=== PATIENT | male | born 1955 | race Hispanic/Latino ===

== ENCOUNTER 2025-01-07 23:55 | Emergency (ER) | payer OTHER, MEDICARE ==
[~2025-01-07] VITALS: Ht 167.6 cm; Wt 90.7 kg
[~2025-01-07 23:55] MED LIST: AEC81 PO; ALLO100T PO; ATOR20TA65 PO; CHOL2000 PO; FOLI1TAB85 PO; LOSA100T59 PO; OXYC-38 PO; TAMS-55 PO
[2025-01-08 00:35] LABS: CREATININE 1.1 mg/dL (0.5-1.3); GLOMERULAR FILTR. RATE CALC 72.0 mL/min (>90); GLUCOSE,RANDOM 145.0 mg/dL (70-105); SODIUM SERUM 140.0 mmol/L (136-145); UREA NITROGEN, BLOOD 20.0 mg/dL (7-18)
[2025-01-08 00:42] LABS: IMMATURE GRANULOCYTE ABSOLUTE 0.03 K/uL (0-1); NUCLEATED RED BLOOD CELLS 0.0 % (0.0-0.19); PLATELET COUNT (AUTO) 301 K/uL (130-400); RED BLOOD CELL COUNT(AUTO) 4.44 MIL/uL (4.50-6.20); RED CELL DISTRIBUTION WIDTH 13.6 % (11.0-15.5); WHITE BLOOD COUNT (AUTO) 9.7 K/uL (4.8-10.8)
[2025-01-08 00:43] LABS: INR 1.02 (0.85-1.15)
--- NOTE | 2025-01-08 01:16 | ERN ---
General Chief Complaint: Post-Op Problem Stated Complaint: WOUND CHECK Time Seen by MD: 00:15 History of Present Illness Initial Comments Mr Holt is a 69 year old male who comes in today with left knee pain. Patient reports he has been having increased bloody drainage of his left knee replacement by Dr. Santiago. Allergies: Coded Allergies: No Known Drug Allergies (Verified Allergy, Unknown, 07/15/16) Home Meds Active Scripts Oxycodone HCl/Acetaminophen (Percocet 5-325 mg Tablet) 5 Mg-325 Mg Tablet, 1-2 TAB PO Q8H PRN for Acute post-op pain (G89.18) for 7 Days, #42 TAB 0 Refills Prov:VINH SANTIAGO MD 01/04/25 Aspirin (ASPIRIN 81 MG ECTAB) 81 Mg Ectab, 81 MG PO BID for dvt prophylaxis for 30 Days, #60 TAB.EC Prov:VINH SANTIAGO MD 01/04/25 Reported Medications Cholecalciferol (Vitamin D3) (Vitamin D3) 50 Mcg (2000 Unit) Capsule, 50 MCG PO HS, CAP 01/01/25 Losartan Potassium (Losartan Potassium) 100 Mg Tablet, 100 MG PO HS, TAB 01/01/25 Atorvastatin Calcium (Atorvastatin Calcium) 20 Mg Tablet, 20 MG PO HS, TAB 01/01/25 Tamsulosin HCl (Flomax) 0.4 Mg Cap.er.24h, 0.4 MG PO HS, CAPSULE. 01/01/25 Vit B Cmplx 3/FA/Vit C/Biotin (Yolanda-Herminio Rx Tablet) 1 Each Tablet, 1 EACH PO HS, TAB 07/15/16 Allopurinol (Allopurinol) 100 Mg Tablet, 200 MG PO HS, TAB 07/15/16 Discontinued Reported Medications Tramadol Hcl (Tramadol HCl) 50 Mg Tablet, 50 MG PO TID PRN for PAIN, TAB 07/15/16 Sildenafil Citrate (Viagra) 100 Mg Tablet, 100 MG PO DAILY PRN for ERECTILE DYSFUCTION, TAB 07/15/16 Cholecalciferol (Vitamin D3) (Vitamin D3) 5,000 Unit Tablet, 5000 UNIT PO HS, TAB 07/15/16 Past Medical History Past Medical History: High Cholesterol, Hypertension Past Surgical History: Other Surgical History Other: LEFT KNEE SX, RIGHT NEPHRECTOMY Physical Exam Physical Exam Dictation General: awake, alert, NAD Head/Face: Normocephalic, atraumatic Eyes: PERRL, EOMI, vision at baseline ENT: oral cavity clear, TMs clear, no signs of infection Neck: Trachea midline, supple, no nuchal rigidity Cardiovascular: RRR, normal S1/S2, No MRGs, no JVD Respiratory: CTAB, no respiratory distress, No rales or wheezes Abdomen: Soft, non-tender, non-distended, normal bowel sounds, no guarding or rebound. Skin: Warm, dry, normal turgor, no rash MS/Extremity: Enlarged left lower extremity with drainage device Neuro: COAx4, GCS 15, strength 5/5, CN 2-12 intact, normal cerebellar exam, normal gait, Psych: Normal behavior, mood, and affect normal Results Laboratory and Microbiology Lab and Micro Result Laboratory Tests Test 01/08/25 00:08 White Blood Count 9.7 K/uL (4.8-10.8) Red Blood Count 4.44 MIL/uL (4.50-6.20) L Hemoglobin 13.3 g/dL (14.0-18.0) L Hematocrit 40.9 % (42-54) L Mean Corpuscular Volume 92.1 fL (79-99) Mean Corpuscular Hemoglobin 30.0 pg (27.0-33.0) Mean Corpuscular Hemoglobin Concent 32.5 g/dL (32.0-36.0) Red Cell Distribution Width 13.6 % (11.0-15.5) Platelet Count 301 K/uL (130-400) Mean Platelet Volume 9.2 fL (7.5-10.5) Immature Granulocyte % (Auto) 0.3 % (0-1) Neutrophils (%) (Auto) 65.5 % (40.0-77.0) Lymphocytes (%) (Auto) 21.4 % (21.0-51.0) Monocytes (%) (Auto) 9.0 % (3.0-13.0) Eosinophils (%) (Auto) 3.3 % (0.0-8.0) Basophils (%) (Auto) 0.5 % (0.0-5.0) Neutrophils # (Auto) 6.4 K/uL (1.8-7.7) Lymphocytes # (Auto) 2.1 K/uL (1.0-4.8) Monocytes # (Auto) 0.9 K/uL (0.1-1.0) Eosinophils # (Auto) 0.32 K/uL (0.00-0.70) Basophils # (Auto) 0.05 K/uL (0.00-0.20) Absolute Immature Granulocyte (auto 0.03 K/uL (0-1) Nucleated Red Blood Cells 0.0 % (0.0-0.19) Prothrombin Time 10.8 SEC (9.6-11.6) Prothromb Time International Ratio 1.02 (0.85-1.15) Activated Partial Thromboplast Time 28.7 SEC (26.3-35.5) Sodium Level 140 mmol/L (136-145) Potassium Level 3.6 mmol/L (3.5-5.1) Chloride Level 103 mmol/L (101-111) Carbon Dioxide Level 26 mmol/L (21-32) Blood Urea Nitrogen 20 mg/dL (7-18) H Creatinine 1.1 mg/dL (0.5-1.3) Glomerular Filtration Rate Calc 72 mL/min (>90) Random Glucose 145 mg/dL (70-105) H Total Calcium 9.5 mg/dL (8.5-10.1) MDM Patient was seen by Dr. Santiago who did help repair the patient's wound care device. Patient also appears to be retaining urine. Patient will be given Martinez catheter to go home with and follow up with the primary care physician MDM: Differential diagnosis: Wound issue Rationale: Tests considered and ordered secondary to shared decision making include: Previous outside records reviewed: Old ER visits. Risk of complication and/or morbidity or mortality of patient management: None Medications-Per medication reconciliation Need for hospitalization: Patient does not meet criteria for hospitalization. Need for emergency major/minor surgery: No There are no social concerns with this patient. Prescription drug management Prescriptions will include symptomatic care Patient's prior external medical records from other ER visits were reviewed by me as indicated. Prior testing and results from previous visits were reviewed. Prior tests were taken into account with medical decision making and resource utilization, independent historian/historians were used to obtain complete medical history. I independently interpreted the test that were performed, results were reviewed by me and considered findings on radiology if ordered. Medical management and examination interpretation discussions were had by me with other qualified healthcare professionals as indicated for the patient's care. ED Course Orders Procedure Category Date Status Time Cbc With Differential LAB 01/07/25 Complete 23:59 Basic Metabolic Panel LAB 01/07/25 Complete 23:59 Pt And Ptt LAB 01/07/25 Complete 23:59 Us Venous Doppler US 01/08/25 Taken Bilateral 00:22 Dermabond (Dermabond) PHA 01/08/25 Complete 02:04 Nurse Driven Martinez ARCHIE 01/08/25 In Process Removal Pro 02:06 Current Medications Medications (Trade) Dose Ordered Sig/Lory Route PRN Reason Start Time Stop Time Status Last Admin Dose Admin Octyl Cyanoacrylate (Dermabond) 1 each STK-MED ONCE TP 01/08/25 02:04 01/08/25 02:04 DC Vital Signs Date Time Temp Pulse Resp B/P (MAP) Pulse Ox O2 Delivery O2 Flow Rate FiO2 01/08/25 01:33 98.4 88 14 162/85 96 Room Air* 0 21 01/07/25 23:58 98.4 104 16 162/85 98 Room Air* 0 21 01/07/25 23:58 98.4 100 18 160/85 98 Room Air 0 DX & DISP Disposition: Discharge Departure Impression: Primary Impression: Postoperative complication Condition: Stable Additional Instructions: Please follow up with your primary care physician to discuss urinary retention. Please follow up with Orthopedics has needed for continuance care of your drainage device Referrals: MAHESH LARSON MD (PCP) VINH CROCKER MD Jan 08, 2025 01:16
--- NOTE | 2025-01-08 01:51 | NUR ---
DR RICHARDSON AT BEDSIDE.
--- NOTE | 2025-01-08 02:02 | NUR ---
BLADDER SCANNER SHOWED [phone].
--- NOTE | 2025-01-08 02:04 | NUR ---
PER DR. RICHARDSON, INSERT INDWELLING CENTENO CATHETER AND ATTACH TO LEG BAG FOR D/C
[2025-01-08] MEDS: OCTYL 2-CYANOACRYLATE 1 EACH TP ONE (02:09)
--- NOTE | 2025-01-08 02:20 | NUR ---
DR. RICHARDSON ASSESSED SURGICAL SITE, REDRESSED LATERAL INCISION SITE WITH DERMABOND, 4X4 DRESSING, AND DEEP WRAP. PT WILL FOLLOW UP WITH DR. RICHARDSON OUTPATIENT ON TUESDAY.
--- NOTE | 2025-01-08 02:47 | ERN ---
CONSULTATION NOTE DATE OF ER CONSULTATION: DATE: 01/08/25 REASON FOR CONSULTATION: Post-operative bleeding HISTORY OF PRESENT ILLNESS: The face using a 69-year-old male that underwent a revision knee arthroplasty on January 03, 2025. The patient was also treated for a chronic cystic lesion in the lateral aspect of the knee. The patient presented to the emergency room by ambulance for complains of swelling to the leg as well as bleeding. He was evaluated by the emergency room physician and it was found that a the vein thrombosis was ruled out by Doppler study. Regardless the patient had a dressing in the lateral aspect of the knee saturated with blood reason why I was called. The patient denies any fever or chills. The patient denies any pain. He states that the bleeding just started yesterday and later by little the dressing which is small start getting saturated. He states that he is only taking Tylenol. He was assessed by physical therapy for the 1st time yesterday and has her next appointment on Tuesday. PAST MEDICAL HISTORY: Hypercholesterolemia, hypertension, BPH PAST SURGICAL HISTORY: Multiple knee surgeries more than 20 years ago. Left total knee arthroplasty 20 years ago. History of UroLift procedure for prostate hypertrophy. Nephrectomy ALLERGIES: Coded Allergies: No Known Drug Allergies (Verified Allergy, Unknown, 07/15/16) SOCIAL HISTORY: Denies use of tobacco or alcohol FAMILY HISTORY No relevant HOME MEDS: Active Scripts Oxycodone HCl/Acetaminophen (Percocet 5-325 mg Tablet) 5 Mg-325 Mg Tablet, 1-2 TAB PO Q8H PRN for Acute post-op pain (G89.18) for 7 Days, #42 TAB 0 Refills Prov:VINH RICHARDSON MD 01/04/25 Aspirin (ASPIRIN 81 MG ECTAB) 81 Mg Ectab, 81 MG PO BID for dvt prophylaxis for 30 Days, #60 TAB.EC Prov:VINH RICHARDSON MD 01/04/25 Reported Medications Cholecalciferol (Vitamin D3) (Vitamin D3) 50 Mcg (2000 Unit) Capsule, 50 MCG PO HS, CAP 01/01/25 Losartan Potassium (Losartan Potassium) 100 Mg Tablet, 100 MG PO HS, TAB 01/01/25 Atorvastatin Calcium (Atorvastatin Calcium) 20 Mg Tablet, 20 MG PO HS, TAB 01/01/25 Tamsulosin HCl (Flomax) 0.4 Mg Cap.er.24h, 0.4 MG PO HS, CAPSULE. 01/01/25 Vit B Cmplx 3/FA/Vit C/Biotin (Yolanda-Herminio Rx Tablet) 1 Each Tablet, 1 EACH PO HS, TAB 07/15/16 Allopurinol (Allopurinol) 100 Mg Tablet, 200 MG PO HS, TAB 07/15/16 Discontinued Reported Medications Tramadol Hcl (Tramadol HCl) 50 Mg Tablet, 50 MG PO TID PRN for PAIN, TAB 07/15/16 Sildenafil Citrate (Viagra) 100 Mg Tablet, 100 MG PO DAILY PRN for ERECTILE DYSFUCTION, TAB 07/15/16 Cholecalciferol (Vitamin D3) (Vitamin D3) 5,000 Unit Tablet, 5000 UNIT PO HS, TAB 07/15/16 VITAL SIGNS Vital Signs Date Time Temp Pulse Resp B/P (MAP) Pulse Ox O2 Delivery O2 Flow Rate FiO2 01/08/25 01:33 98.4 88 14 162/85 96 Room Air* 0 21 01/07/25 23:58 98.4 104 16 162/85 98 Room Air* 0 21 01/07/25 23:58 98.4 100 18 160/85 98 Room Air 0 REVIEW OF SYSTEMS The patient reports symptoms of urinary retention consisting of frequent urination standing every 20 minutes and going to the bathroom with just a few drops of urine coming out. He has a history of prostate issues and takes medication for retention. The patient had a UroLift several years ago which he reports helped initially but is no longer effective. He urinates normally every 3-4 hours. PHYSICAL EXAM The patient is seen at the bedside. He is alert, oriented x3 and in no distress. Her respiratory rate and rhythm is normal and he has no labored respirations. The suprapubic exam reveals the patient has tenderness of the suprapubic area as well as what seems to be a distended bladder. A bladder scan demonstrated the presence of 740 mL of urine. Musculoskeletal assessment of the left lower extremity shows very diffuse edema especially in the calf which is soft and this negative Homans sign. Temperature is adequate. The dressing covering the midline incision which is a Darwin dressing is dry and functioning properly. The dressing which is a small op-site covering the incision which is covered with a small 4x4s is saturated. The dressing is removed in the lateral side and the incision seems to be healing well but this one small spot that oozes slowly but continuously. The patient is able to flex his knee to about 90 and he has weakness for extension because of pain. Otherwise the distal neurovascular exam is normal.. LABORATORY RESULTS Laboratory Tests 01/08/25 00:08: White Blood Count 9.7, Red Blood Count 4.44, Hemoglobin 13.3, Hematocrit 40.9, Mean Corpuscular Volume 92.1, Mean Corpuscular Hemoglobin 30.0, Mean Corpuscular Hemoglobin Concent 32.5, Red Cell Distribution Width 13.6, Platelet Count 301, Mean Platelet Volume 9.2, Immature Granulocyte % (Auto) 0.3, Neutrophils (%) (Auto) 65.5, Lymphocytes (%) (Auto) 21.4, Monocytes (%) (Auto) 9.0, Eosinophils (%) (Auto) 3.3, Basophils (%) (Auto) 0.5, Neutrophils # (Auto) 6.4, Lymphocytes # (Auto) 2.1, Monocytes # (Auto) 0.9, Eosinophils # (Auto) 0.32, Basophils # (Auto) 0.05, Absolute Immature Granulocyte (auto 0.03, Nucleated Red Blood Cells 0.0, Prothrombin Time 10.8, Prothromb Time International Ratio 1.02, Activated Partial Thromboplast Time 28.7, Sodium Level 140, Potassium Level 3.6, Chloride Level 103, Carbon Dioxide Level 26, Blood Urea Nitrogen 20, Creatinine 1.1, Glomerular Filtration Rate Calc 72, Random Glucose 145, Total Calcium 9.5 RADIOLOGY Ultrasound study done earlier today reveals patent veins of the lower extremity with no signs of DVT. PROBLEM LIST Status post left total knee arthroplasty revision and excision of synovial cyst at the lateral aspect of the knee. Very light postoperative bleeding from the lateral incision Urinary retention. PLAN In reference to the surgical wound the patient has been treated with a dressing change and a compressive dressing from the foot up to the knee. The patient is to remain steady just ambulating and keeping the leg elevated while is seated or lying down. History of do ankle pumps also to help decrease the bleeding. He can reach position of the Fidel bandage if necessary. He is going to come to my office this Tuesday for wound check and removal of the Darwin dressing. History continue with the ice packs of the knee. I am going to see him to call the physical therapy from the home health and hold the therapy until next week. In reference of the urinary retention, the team from the emergency department placed a Martinez catheter with a bag. The [facility] to [facility]rology for catheter removal in 7-10 days as well as urologic evaluation. The patient isn't having much pain and is taking only Tylenol for it and I will recommend to avoid as much as possible narcotics. He is to contact the office if any problem occurs between here and Tuesday. VINH RICHARDSON MD Jan 08, 2025 02:47
[2025-01-08 03:23] VITALS: BP 136/56; PULSE 75; RESP 21; TEMP 98.5; O2SAT 98
--- NOTE | 2025-01-08 03:28 | HMCIMG ---
EXAM Ultrasound for Deep Venous Thrombosis DVT, Bilateral Lower Extremities CLINICAL HISTORY Left leg swelling. Rule out DVT left side. TECHNIQUE Real-time ultrasound with compression, color Doppler, and spectral waveform analysis of the bilateral lower extremity veins. COMPARISON None available. FINDINGS Deep Veins Common femoral, superficial femoral, and popliteal veins are patent, compressible, and show normal color Doppler flow. Calf veins are also patent. Soft Tissues Posterior to the left knee area: Anechoic fluid-filled area with no vascularity, measuring 5.2 x 2.6 x 2.8 cm. Differential includes Vang's cyst vs seroma. Another hypoechoic area in the same region measures 2.8 x 1.1 x 1.6 cm, possibly a hematoma. Left calf area: Anechoic, nonvascular structure measuring 4.9 x 1.3 x 3.6 cm, possibly a seroma. IMPRESSION No evidence of DVT in either lower extremity. Incidental left leg soft tissue findings as described above. /[place]
== END 2025-01-08 03:41 | disposition home or self-care (01) ==
LOC: EDH 23:55
DX: L76.82 Other postprocedural complications of skin and subcutaneous tissue (principal); E78.00 Pure hypercholesterolemia, unspecified; I10 Essential (primary) hypertension; M79.662 Pain in left lower leg; R33.8 Other retention of urine; Z79.82 Long term (current) use of aspirin; Z90.5 Acquired absence of kidney; Z96.652 Presence of left artificial knee joint
CPT/HCPCS: 36415; 51702; 80048; 85025; 85610; 85730; 93970; 99284

== ENCOUNTER 2025-01-16 18:16 | Emergency (ER) | payer OTHER, MEDICARE ==
[~2025-01-16] VITALS: Ht 167.6 cm; Wt 120.2 kg
[2025-01-16 18:17] VITALS: BP 168/88; PULSE 95; RESP 18; TEMP 98.6
--- NOTE | 2025-01-16 18:25 | ERN ---
ED Note History of Present Illness Stated Complaint: URINE RETENTION Chief Complaint: Urinary Retention Time Seen by MD: 18:17 Dictation: PATIENT IS A 69-YEAR-OLD MALE COMING IN TODAY WITH A AN ACUTE URINARY RETENTION, ONSET 10:00 THIS MORNING. HE STATES HE HAD HAD A CENTENO CATHETER REMOVED BY HIS UROLOGIST AT THE [facility] AT 10:00, WAS ADVISED IF HE HAD NO URINE IN THE NEXT 6-8 HOURS TO COME IN TO THE EMERGENCY ROOM. HE STATES HE HAS BEEN UNABLE TO VOID SINCE THE CENTENO CATHETER WAS REMOVED, PATIENT IS 2-3 FINGERBREADTHS DISTENDED ABOVE SYMPHYSIS PUBIS. Allergies: Coded Allergies: No Known Drug Allergies (Verified Allergy, Unknown, 07/15/16) Home Meds Active Scripts Oxycodone HCl/Acetaminophen (Percocet 5-325 mg Tablet) 5 Mg-325 Mg Tablet, 1-2 TAB PO Q8H PRN for Acute post-op pain (G89.18) for 7 Days, #42 TAB 0 Refills Prov:VINH RICHARDSON MD 01/04/25 Aspirin (ASPIRIN 81 MG ECTAB) 81 Mg Ectab, 81 MG PO BID for dvt prophylaxis for 30 Days, #60 TAB.EC Prov:VINH RICHARDSON MD 01/04/25 Reported Medications Cholecalciferol (Vitamin D3) (Vitamin D3) 50 Mcg (2000 Unit) Capsule, 50 MCG PO HS, CAP 01/01/25 Losartan Potassium (Losartan Potassium) 100 Mg Tablet, 100 MG PO HS, TAB 01/01/25 Atorvastatin Calcium (Atorvastatin Calcium) 20 Mg Tablet, 20 MG PO HS, TAB 01/01/25 Tamsulosin HCl (Flomax) 0.4 Mg Cap.er.24h, 0.4 MG PO HS, CAPSULE. 01/01/25 Vit B Cmplx 3/FA/Vit C/Biotin (Yolanda-Herminio Rx Tablet) 1 Each Tablet, 1 EACH PO HS, TAB 07/15/16 Allopurinol (Allopurinol) 100 Mg Tablet, 200 MG PO HS, TAB 07/15/16 Past Medical History Past Medical History: High Cholesterol, Hypertension, Prostatitis Surgical History: Other Surgical History Other: LEFT KNEE, RIGHT KIDNEY REMOVAL RN Note Reviewed/Agreed w/PFSH: Yes Review of System Dictation CONSTITUTIONAL: NEGATIVE EXCEPT FOR HPI HEAD/FACE: NEGATIVE EXCEPT FOR HPI EENT: NEGATIVE EXCEPT FOR HPI RESPIRATORY: NEGATIVE EXCEPT FOR HPI GASTROINTESTINAL/ABDOMINAL: NEGATIVE EXCEPT FOR HPI GENITOURINARY: NEGATIVE EXCEPT FOR HPI ACUTE URINARY RETENTION ONSET 10:00 STATUS POST CENTENO CATHETER REMOVAL MUSCULOSKELETAL: NEGATIVE EXCEPT FOR HPI INTEGUMENTARY: NEGATIVE EXCEPT FOR HPI NEUROLOGICAL/PSYCH: NEGATIVE EXCEPT FOR HPI HEMATOLOGIC/LYMPHATIC: NEGATIVE EXCEPT FOR HPI ALL SYSTEMS NEGATIVE, EXCEPT NOTED ABOVE. 13 POINT REVIEW OF SYSTEMS ASSESSED AND ALL NEGATIVE EXCEPT FOR ABOVE. Initial Vital Sign VS Vital Signs Date Time Temp Pulse Resp B/P (MAP) Pulse Ox O2 Delivery O2 Flow Rate FiO2 01/16/25 18:17 98.6 95 18 168/88 98 Physical Exam Dictation VITAL SIGNS REVIEWED GENERAL APPEARANCE: ALERT, ORIENTED X 3, MODERATE ACUTE DISTRESS, WELL DEVELOPED, NOURISHED. HEAD AND FACE: NON-TRAUMATIC. EYES: PERRL, PINK CONJUNCTIVAS, EYELID NO TRAUMA, ANTERIOR CHAMBER WITH ARCUS SENILIS. EARS: PINNAS INTACT AND NO SIGNS OF TRAUMA OR ERYTHEMA EAR CANALS CLEAR AND NO DISCHARGE TM NO ERYTHEMA NOSE: NO DISCHARGE, NO BLEEDING. OROPHARYNX: MOUTH NORMAL, TONGUE PINK, PHARYNX CLEAR,NO ERYTHEMA, TONSILS NO EXUDATES, NO ABSCESSES NOTED, MUCOUS MEMBRANE MOIST NECK: SUPPLE, NON-TENDER, NO THYROMEGALY, NO MASSES, NO JVD, NO BRUITS BREAST:DEFERRED CHEST:NO TENDERNESS, NO CREPITUS, NO PARADOXICAL MOVEMENT, NO RETRACTIONS LUNGS:CLEAR, WELL-VENTILATED, SYMMETRIC, NO RALES, NO WHEEZING, NO RHONCHI, NO STRIDOR, GOOD BREATH SOUNDS BILATERALLY HEART: REGULAR RATE, REGULAR RHYTHM, NO MURMUR, NO GALLOPS VASCULAR: NO PERIPHERAL EDEMA, ABDOMEN: SOFT, POSITIVE BOWEL SOUNDS, NONDISTENDED, NO GUARDING, NONTENDER, NO REBOUND, NO MASSES NO HEPATOMEGALY, NO SPLENOMEGALY, NO RAMÍREZ'S SIGN, NO HERNIAS. RECTAL: DEFERRED GENITAL: DEFERRED BLADDER DISTENDED THREE FINGERBREADTHS ABOVE SYMPHYSIS PUBIS NEUROLOGICAL: NORMAL SPEECH, MOTOR FUNCTION INTACT, SENSORY FUNCTION INTACT MUSCULOSKELETAL: NECK NONTENDER, FULL RANGE OF MOTION, BACK NONTENDER, FULL RANGE OF MOTION, EXTREMITIES: NONTENDER, FULL RANGE OF MOTION SKIN: COLOR PINK, DRY, NO TURGOR, NO RASH, NO LACERATIONS, NO ABRASIONS, NO CONTUSIONS. LYMPHATIC: DEFERRED Results (Laboratory/Radiology) Labs Reviewed?: Yes ED Course ED Course Vital Signs Date Time Temp Pulse Resp B/P (MAP) Pulse Ox O2 Delivery O2 Flow Rate FiO2 01/16/25 18:17 98.6 95 18 168/88 98 1835/PATIENT NO LONGER DISTENDED AND CENTENO CATHETER IS DRAINING DISCHARGED HOME TO CONTINUE FLOMAX 0.8 MG PER HIS UROLOGIST Medical Decision Making MDM MEDICAL DECISION-MAKING BASED ON PHYSICAL ASSESSMENT OF BLADDER AND CENTENO CATHETER INSERTION. APPROXIMATE 450 CC OUT AFTER 16 PUERTO RICAN CENTENO CATHETER PLACED BLADDER NO LONGER PALPABLE PATIENT STATES NO PAIN AT THIS TIME. Procedure Procedure Dictation: 1834/PROCEDURE EXPLAINED TO PATIENT HE AGREED TO PROCEED CARDIAC TECHNOLOGIST PLACED 16 PUERTO RICAN CENTENO CATHETER ASEPTICALLY. NO DIFFICULTIES ENCOUNTERED. BALLOON WAS INFLATED WITH STERILE WATER IMMEDIATELY RETURNED 450 CC CLEAR YASMINE URINE. BLADDER NO LONGER PALPABLE DX & DISP Disposition: Discharge Departure Impression: Primary Impression: Acute urinary retention Condition: Stable Additional Instructions: FOLLOW-UP WITH PRIMARY CARE PROVIDER IN 1 TO 2 DAYS. TAKE MEDICATIONS DIRECTED HERE IN THE EMERGENCY ROOM. OKAY TO CONTINUE HOME MEDICATIONS UNLESS OTHERWISE DISCUSSED DURING YOUR VISIT IN THE EMERGENCY ROOM TODAY. RETURN TO YOUR NEAREST EMERGENCY ROOM IF SYMPTOMS WORSEN OR IF THERE IS NO IMPROVEMENT. CALL 911 IF YOU NEED IMMEDIATE ASSISTANCE. TAKE TYLENOL OR MOTRIN [id number] NEEDED AND IF NO CONTRAINDICATIONS ARE PRESENT. INCREASE ORAL HYDRATION. A WOUND CULTURE OR URINE CULTURE WAS ORDERED HERE IN THE EMERGENCY ROOM DEPARTMENT PLEASE FOLLOW-UP WITH PRIMARY CARE PROVIDER AND ADVISE THEM TO GET REPEAT PORTS FROM OUR FACILITY. IF YOU HAD ANY DEEP WRAP/SPLINTS THAT WERE APPLIED HERE, PLEASE DO NOT REMOVE THEM UNTIL YOU SEE YOUR PRIMARY CARE OR SPECIALTY. CONTINUE THE ANTIBIOTICS AND FLOMAX FROM YOUR UROLOGIST VISIT TODAY. FOLLOW UP WITH HIM AT THE [facility] NEXT 2-3 DAYS NEEDED. Referrals: MAHESH LARSON MD (PCP) Time of Disposition: 18:37 I have reviewed the case, and I agree with, Diagnosis and Plan SUSHILA HUGGINS [employer]UFACTURING CONTROLS ENGINEER Jan 16, 2025 18:25
--- NOTE | 2025-01-16 18:42 | NUR ---
CENTENO INSERTED, PT TOLERATED WELL
== END 2025-01-16 18:45 | disposition home or self-care (01) ==
LOC: EDH 18:16
DX: R33.9 Retention of urine, unspecified (principal); E78.00 Pure hypercholesterolemia, unspecified; I10 Essential (primary) hypertension; Z79.82 Long term (current) use of aspirin
CPT/HCPCS: 51702; 99284

== ENCOUNTER 2025-01-29 15:01 | Emergency (ER) | payer MEDICARE, OTHER ==
[~2025-01-29] VITALS: Ht 167.6 cm; Wt 90.7 kg
--- NOTE | 2025-01-29 15:10 | ERN ---
General Chief Complaint: Urinary Retention Stated Complaint: URINARY RETENTION Time Seen by MD: 15:02 Source: patient History of Present Illness Initial Comments Patient is a 69-year-old male coming in complaining of urine retention. Patient states that he has been battling with this on and off for several months. He is pending a evaluation by urologist but states that he had Martinez removed recently in his having urine retention again. Allergies: Coded Allergies: No Known Drug Allergies (Verified Allergy, Unknown, 07/15/16) Home Meds Active Scripts Oxycodone HCl/Acetaminophen (Percocet 5-325 mg Tablet) 5 Mg-325 Mg Tablet, 1-2 TAB PO Q8H PRN for Acute post-op pain (G89.18) for 7 Days, #42 TAB 0 Refills Prov:VINH RICHARDSON MD 01/04/25 Aspirin (ASPIRIN 81 MG ECTAB) 81 Mg Ectab, 81 MG PO BID for dvt prophylaxis for 30 Days, #60 TAB.EC Prov:VINH RICHARDSON MD 01/04/25 Reported Medications Cholecalciferol (Vitamin D3) (Vitamin D3) 50 Mcg (2000 Unit) Capsule, 50 MCG PO HS, CAP 01/01/25 Losartan Potassium (Losartan Potassium) 100 Mg Tablet, 100 MG PO HS, TAB 01/01/25 Atorvastatin Calcium (Atorvastatin Calcium) 20 Mg Tablet, 20 MG PO HS, TAB 01/01/25 Tamsulosin HCl (Flomax) 0.4 Mg Cap.er.24h, 0.4 MG PO HS, CAPSULE. 01/01/25 Vit B Cmplx 3/FA/Vit C/Biotin (Yolanda-Herminio Rx Tablet) 1 Each Tablet, 1 EACH PO HS, TAB 07/15/16 Allopurinol (Allopurinol) 100 Mg Tablet, 200 MG PO HS, TAB 07/15/16 Past Medical History Past Medical History: High Cholesterol, Hypertension, Prostatitis Medical History Other: URINARY RETENTION Past Surgical History: Other Surgical History Other: LEFT KNEE, RIGHT KIDNEY REMOVAL ROS Dictation CONSTITUTIONAL: No chills, no fever, no weakness, no diaphoresis, no malaise. HEAD/FACE: No signs of trauma. EENT: No eye pain, no blurred vision, no tearing, no double vision, no ear pain, no ear discharge, no nose pain, no nasal congestion, no throat pain, no throat swelling, no mouth pain. RESPIRATORY: No cough, no orthopnea, no SOB, no stridor, no wheezing. CARDIOVASCULAR: No chest pain, no edema, no palpitations, no syncope. GASTROINTESTINAL/ABDOMINAL: No abdominal pain, no constipation, no diarrhea, no nausea, no vomiting. GENITOURINARY: No abnormal discharge, no dysuria, no frequent urination, no hematuria. complaints of pain in the genitals. MUSCULOSKELETAL: No back pain, no gout, no joint pain, no joint swelling, no muscle pain, no muscle stiffness, no neck pain. INTEGUMENTARY: No change in color, no change in hair/nails, no dryness, no lesion, no lumps, no rash. NEUROLOGICAL/PSYCH: No anxiety, not depressed, no emotional problem, no headache, no numbness, no pre-existing deficit, no history of seizures, no tremors, no weakness. HEMATOLOGIC/LYMPHATIC: Not anemic, no history of blood clots, no apparent bleeding, no bruising, glands not swollen. All Systems Negative, Except as Noted. Physical Exam Physical Exam Dictation VITAL SIGNS: Reviewed. GENERAL APPEARANCE: Alert, oriented x3, no acute distress, obese. HEAD AND FACE: Non-traumatic. EYES: PERRL, pink conjunctivas, eyelid no trauma, anterior chamber clear. EARS: Pinnas intact and no signs of trauma or erythema. Ear canals clear and no discharge. TMs no erythema. NOSE: No discharge, no bleeding. OROPHARYNX: Mouth normal, teeth no caries, tongue pink. Pharynx clear, no erythema. Tonsils no exudates, no abscesses noted. Mucous membrane moist. NECK: Supple, non-tender, no thyromegaly, no masses, no JVD, no bruits. BREAST: Deferred. CHEST: No tenderness, no crepitus, no paradoxical movement, no retractions. LUNGS: Clear, well-ventilated, symmetric, no rales, no wheezing, no rhonchi, no stridor, good breath sounds bilaterally. HEART: Regular rate, regular rhythm, no murmur, no gallops. VASCULAR: No peripheral edema. ABDOMEN: Soft, positive bowel sounds, nondistended, no guarding, nontender, no rebound, no masses no hepatomegaly, no splenomegaly, no Vargas's sign, no hernias. RECTAL: Deferred. GENITAL: Deferred. NEUROLOGICAL: Normal speech, gross motor function intact, gross sensory function intact. MUSCULOSKELETAL: Neck nontender, full range of motion, back nontender, full range of motion. EXTREMITIES: Nontender, full range of motion. SKIN: Color pink, dry, no turgor, no rash, no lacerations, no abrasions, no contusions. LYMPHATICS: Deferred. Results Laboratory and Microbiology Labs Reviewed?: Yes MDM MDM: Differential diagnosis: Urine retention, Rationale: Tests considered and ordered secondary to shared decision making include: Previous outside records reviewed: Old ER visits. Risk of complication and/or morbidity or mortality of patient management: None Medications-Per medication reconciliation Need for hospitalization: Patient does not meet criteria for hospitalization. Need for emergency major/minor surgery: No There are no social concerns with this patient. Prescription drug management Prescriptions will include symptomatic care Patient's prior external medical records from other ER visits were reviewed by me as indicated. Prior testing and results from previous visits were reviewed. Prior tests were taken into account with medical decision making and resource utilization, independent historian/historians were used to obtain complete medical history. I independently interpreted the test that were performed, results were reviewed by me and considered findings on radiology if ordered. Medical management and examination interpretation discussions were had by me with other qualified healthcare professionals as indicated for the patient's care. ED Course Orders Procedure Category Date Status Time Nurse Driven Martinez ARCHIE 01/29/25 In Process Removal Pro 15:16 Vital Signs Date Time Temp Pulse Resp B/P (MAP) Pulse Ox O2 Delivery O2 Flow Rate FiO2 01/29/25 15:02 98.2 113 18 146/77 96 Room Air 0 DX & DISP Disposition: Discharge Departure Impression: Primary Impression: Acute urinary retention Condition: Stable Referrals: MAHESH LARSON MD (PCP) MCKENZIE LUNDY MD Jan 29, 2025 15:10
[2025-01-29 15:40] VITALS: BP 157/81; PULSE 100; RESP 14; TEMP 98.2; O2SAT 96
== END 2025-01-29 15:40 | disposition home or self-care (01) ==
LOC: EDH 15:01
DX: R33.9 Retention of urine, unspecified (principal); E78.00 Pure hypercholesterolemia, unspecified; I10 Essential (primary) hypertension; Z79.82 Long term (current) use of aspirin
CPT/HCPCS: 51702; 99284

== ENCOUNTER 2025-03-14 20:45 | Inpatient (IN) | payer OTHER, MEDICARE ==
[~2025-03-14] VITALS: Ht 167.6 cm; Wt 84.6 kg
--- NOTE | 2025-03-14 20:46 | NUR ---
SEPSIS ALERT CALLED AND PT BEDDED
[2025-03-14 21:08] LABS: IMMATURE GRANULOCYTE ABSOLUTE 0.03 K/uL (0-1); NUCLEATED RED BLOOD CELLS 0.0 % (0.0-0.19); PLATELET COUNT (AUTO) 219 K/uL (130-400); RED BLOOD CELL COUNT(AUTO) 4.92 MIL/uL (4.50-6.20); RED CELL DISTRIBUTION WIDTH 14.6 % (11.0-15.5); WHITE BLOOD COUNT (AUTO) 9.9 K/uL (4.8-10.8)
[2025-03-14 21:20] LABS: CREATININE 1.4 mg/dL (0.5-1.3); GLOMERULAR FILTR. RATE CALC 54.0 mL/min (>90); GLUCOSE,RANDOM 109.0 mg/dL (70-105); SODIUM SERUM 140.0 mmol/L (136-145); UREA NITROGEN, BLOOD 9.0 mg/dL (7-18)
[2025-03-14] MEDS: 0.9%NACL 1000ML 2,721 ML IV ONE (21:24)
[2025-03-14 21:25] LABS: CREATINE KINASE, TOTAL 115.0 U/L (21-232)
--- NOTE | 2025-03-14 21:33 | ERN ---
ED Note History of Present Illness Stated Complaint: SEPSIS Chief Complaint: Sepsis Time Seen by MD: 20:57 Dictation: This is a 69-year-old male with a problems with BPH and urinary retention apparently saw his urologist yesterday and his Martinez catheter was removed. He stated that he had left knee surgery by Dr. Santiago January 03, 2025. Postoperatively patient had urinary retention and a Martinez had to be placed. He was sent home with a indwelling Martinez and a leg bag. He saw yesterday and the Martinez catheter was removed. He urinated normally for next 24 hours however today he started having decreased urine output. Developed fever chills rigors as well as suprapubic pressure and pain. Given this he came in for evaluation. He denied any hematuria and pyuria but does relate some dysuria and frequency with small amounts of urine. Temperature 103.3 pulse 141 respirations 32 blood pressure 226/114 with a pulse oximetry of 97% on room air His chronic medical problems include hypertension, hypercholesterolemia, renal cell carcinoma of the right kidney status post nephrectomy and history of prostatitis and urinary retention issues Allergies: Coded Allergies: No Known Drug Allergies (Verified Allergy, Unknown, 07/15/16) Home Meds Active Scripts Oxycodone HCl/Acetaminophen (Percocet 5-325 mg Tablet) 5 Mg-325 Mg Tablet, 1-2 TAB PO Q8H PRN for Acute post-op pain (G89.18) for 7 Days, #42 TAB 0 Refills Prov:VINH SANTIAGO MD 01/04/25 Aspirin (ASPIRIN 81 MG ECTAB) 81 Mg Ectab, 81 MG PO BID for dvt prophylaxis for 30 Days, #60 TAB.EC Prov:VINH SANTIAGO MD 01/04/25 Reported Medications Cholecalciferol (Vitamin D3) (Vitamin D3) 50 Mcg (2000 Unit) Capsule, 50 MCG PO HS, CAP 01/01/25 Losartan Potassium (Losartan Potassium) 100 Mg Tablet, 100 MG PO HS, TAB 01/01/25 Atorvastatin Calcium (Atorvastatin Calcium) 20 Mg Tablet, 20 MG PO HS, TAB 01/01/25 Tamsulosin HCl (Flomax) 0.4 Mg Cap.er.24h, 0.4 MG PO HS, CAPSULE. 01/01/25 Vit B Cmplx 3/FA/Vit C/Biotin (Yolanda-Herminio Rx Tablet) 1 Each Tablet, 1 EACH PO HS, TAB 07/15/16 Allopurinol (Allopurinol) 100 Mg Tablet, 200 MG PO HS, TAB 07/15/16 Past Medical History Past Medical History: High Cholesterol, Hypertension, Prostatitis Additional Past Medical Hx: URINARY RETENTION, KIDNEY CANCER RIGHT Surgical History: Other Surgical History Other: LEFT KNEE, RIGHT KIDNEY REMOVAL Family History: Negative RN Note Reviewed/Agreed w/PFSH: Yes Review of System Dictation Constitutional: Positive for fever,chills, and denied weight loss Eyes: Negative for injury, pain,redness, and discharge ENT: Negative for injury,pain or swelling Cardiovascular: Negative for chest pain, palpitations, and edema Respiratory: Negative for shortness of breath, cough, and wheezing, Abdomen/GI: Negative for abdominal pain, nausea, vomiting, diarrhea, and constipation Back: Negative for injury and pain : Negative for injury, bleeding and discharge positive for suprapubic pain MS/Extremity: Negative for injury and deformity Skin: Negative for rash, and discoloration Neuro: Negative for headache, weakness, numbness, tingling, and seizure Psych: Negative for suicide ideation, homicidal ideation, and hallucinations Initial Vital Sign VS Vital Signs Date Time Temp Pulse Resp B/P (MAP) Pulse Ox O2 Delivery O2 Flow Rate FiO2 03/14/25 20:46 103.3 141 32 226/114 97 Room Air 03/14/25 21:01 0 21 Physical Exam Dictation General: awake, alert, NAD Head/Face: Normocephalic, atraumatic Eyes: PERRL, EOMI, vision at baseline ENT: oral cavity clear, TMs clear, no signs of infection Neck: Trachea midline, supple, no nuchal rigidity Cardiovascular: RRR, normal S1/S2, No MRGs, no JVD Respiratory: CTAB, no respiratory distress, No rales or wheezes Abdomen: Soft, non-tender, non-distended, normal bowel sounds, no guarding or rebound. Skin: Warm, dry, normal turgor, no rash MS/Extremity: Pulses equal, no cyanosis, neurovascular intact, FROM Neuro: COAx4, GCS 15, strength 5/5, CN 2-12 intact, normal cerebellar exam, normal gait, Psych: Normal behavior, mood, and affect normal Extremities-trace edema without any palpable cords, Homans sign is negative Results (Laboratory/Radiology) Laboratory/Radiology Laboratory Tests Test 03/14/25 20:53 03/14/25 20:58 Sodium Level 140 mmol/L (136-145) Potassium Level 3.5 mmol/L (3.5-5.1) Chloride Level 100 mmol/L (101-111) L Carbon Dioxide Level 28 mmol/L (21-32) Blood Urea Nitrogen 9 mg/dL (7-18) Creatinine 1.4 mg/dL (0.5-1.3) H Glomerular Filtration Rate Calc 54 mL/min (>90) Random Glucose 109 mg/dL (70-105) H Lactic Acid Level 3.0 mmol/L (0.8-2.5) H Total Calcium 9.5 mg/dL (8.5-10.1) Total Creatine Kinase 115 U/L (21-232) White Blood Count 9.9 K/uL (4.8-10.8) Red Blood Count 4.92 MIL/uL (4.50-6.20) Hemoglobin 14.1 g/dL (14.0-18.0) Hematocrit 44.6 % (42-54) Mean Corpuscular Volume 90.7 fL (79-99) Mean Corpuscular Hemoglobin 28.7 pg (27.0-33.0) Mean Corpuscular Hemoglobin Concent 31.6 g/dL (32.0-36.0) L Red Cell Distribution Width 14.6 % (11.0-15.5) Platelet Count 219 K/uL (130-400) Mean Platelet Volume 8.8 fL (7.5-10.5) Immature Granulocyte % (Auto) 0.3 % (0-1) Neutrophils (%) (Auto) 81.8 % (40.0-77.0) H Lymphocytes (%) (Auto) 15.6 % (21.0-51.0) L Monocytes (%) (Auto) 1.4 % (3.0-13.0) L Eosinophils (%) (Auto) 0.6 % (0.0-8.0) Basophils (%) (Auto) 0.3 % (0.0-5.0) Neutrophils # (Auto) 8.1 K/uL (1.8-7.7) H Lymphocytes # (Auto) 1.6 K/uL (1.0-4.8) Monocytes # (Auto) 0.1 K/uL (0.1-1.0) Eosinophils # (Auto) 0.06 K/uL (0.00-0.70) Basophils # (Auto) 0.03 K/uL (0.00-0.20) Absolute Immature Granulocyte (auto 0.03 K/uL (0-1) Nucleated Red Blood Cells 0.0 % (0.0-0.19) Troponin I High Sensitivity 10 ng/L (4-75) Labs Reviewed?: Yes EKG Comment: Twelve lead EKG done on 03/14/2025 at 9:10 p.m. showed a heart rate of 117, MI interval 164, QRS 148, QT/QTC 337/471. Impression sinus tachycardia with a artifactual baseline due to chills and tremors. Right bundle branch block. Nonspecific ST-T changes. EKG rhythm strip shows sinus tachycardia with nonspecific ST-T changes. Interpreted by ER MD Dr. Reed X-RAY Comment: Chest x-ray interpreted by me-no evidence of any acute infiltrate noted. Radiology interpretation is pending ED Course ED Course Orders Procedure Category Date Status Time Cbc With Differential LAB 03/14/25 Complete 20:59 Urinalysis Profile LAB 03/14/25 Logged 20:59 12 Lead Ekg Tracing- EKG 03/14/25 Logged Technical 20:59 Acetaminophen 325 Tab PHA 03/14/25 Complete (Tylenol 325mg Tab 21:00 Chest 1vw RAD 03/14/25 Resulted 20:59 Basic Metabolic Panel LAB 03/14/25 Complete 20:59 Blood Cult GARY 03/14/25 In Process 20:59 0.9%Nacl 1000ml (Ns PHA 03/14/25 In Process 1000ml) 21:00 Creatine Kinase, Total LAB 03/14/25 Complete 20:59 Troponin I High LAB 03/14/25 Complete Sensitivity 20:59 Lactic Acid LAB 03/14/25 Complete 20:59 Influenza Type A & B, LAB 03/14/25 Logged Rapid 21:19 Covid19 (Sars Antigen LAB 03/14/25 Logged Rapid) 21:19 Morphine 4mg Syg PHA 03/14/25 Complete (Morphine 4mg Syg) 22:00 Ondansetron 4mg Inj PHA 03/14/25 Complete (Zofran 4mg Inj) 22:00 Zosyn 3.375gm+Ns 50ml PHA 03/14/25 Complete (Zosyn 3.375gm+Ns 22:00 Vancomycin 1g/250ml PHA 03/14/25 Complete Kit (Vancomycin 1g/2 22:00 Edm Admit Bridge Order ADM 03/14/25 Transmitted 22:30 Current Medications Medications (Trade) Dose Ordered Sig/Lory Route PRN Reason Start Time Stop Time Status Last Admin Dose Admin Acetaminophen (TYLenol 325MG TAB) 650 mg ONCE ONCE PO 03/14/25 21:00 03/14/25 21:10 DC 03/14/25 21:24 Morphine Sulfate (morPHINE 4MG SYG) 4 mg ONCE ONCE IVP 03/14/25 22:00 03/14/25 22:01 DC Ondansetron HCl (zoFRAN 4MG INJ) 4 mg ONCE ONCE IVP 03/14/25 22:00 03/14/25 22:01 DC Piperacillin Sod/ Tazobactam Sod (Zosyn 3.375gm+NS 50ml) 3.375 gm ONCE ONCE IV 03/14/25 22:00 03/14/25 22:01 DC Sodium Chloride 2,721 ml @ 907 mls/hr ONCE ONCE IV 03/14/25 21:00 03/14/25 23:59 03/14/25 21:24 Vancomycin HCl (Vancomycin 1g/ 250ml Kit) 1 gm ONCE ONCE IV 03/14/25 22:00 03/14/25 22:01 DC Vital Signs Date Time Temp Pulse Resp B/P (MAP) Pulse Ox O2 Delivery O2 Flow Rate FiO2 03/14/25 21:01 102.9 122 20 162/87 97 Room Air* 0 21 03/14/25 20:46 103.3 141 32 226/114 97 Room Air We will perform diagnostic labs, advanced imaging and administer medications according to the patient's complaint. Once the results are available, will review and personally interpreted the labs to rule out any acute life- threatening emergency the trach require immediate intervention and treatment. I will then re-evaluate the patient after treatment and diagnostic exams have return to determine whether the patient requires any further testing, can safely be discharged home or need further admission to hospital for additional treatment and evaluation. 10:30 p.m. patient accepted by Luis Joseph, mid-level provider for hospitalist group for admission and further management of severe sepsis likely related to complicated UTI Medical Decision Making MDM Differential diagnosis: Severe sepsis likely related to urinary tract infection with previous indwelling Martinez catheter. The other possibilities would be influenza, COVID, pneumonia, intra-abdominal or pelvic abscess, pyelonephritis We will perform diagnostic labs, advanced imaging and administer medications according to the patient's complaint. Once the results are available, will review and personally interpreted the labs to rule out any acute life-th reatening emergency the trach require immediate intervention and treatment. I will then re-evaluate the patient after treatment and diagnostic exams have return to determine whether the patient requires any further testing, can safely be discharged home or need further admission to hospital for additional treatment and evaluation. Sepsis pathway was initiated with 30 mL/kilos IV fluids ho cultures. 9:41 p.m. labs reviewed CBC is with a normal limits lactic acid is 3.0 BNP 7 showed a potassium of 3.5 BUN and creatinine are 9 and 1.4. Chest x-ray is unremarkable for any acute infiltrate. Swabs for influenza COVID are pending at this time. Urinalysis is also pending at this time I recommended admission to the hospital for severe sepsis likely related complicated UTI and indwelling Martinez catheter for almost 3 months and patient and his are agreeable Rationale: Tests considered and ordered secondary to shared decision making include: labs, ECG and radiology Previous outside records reviewed: Old ER visits. Risk of complication and/or morbidity or mortality of patient management: None Medications-Per medication reconciliation Need for hospitalization: Patient does meet criteria for hospitalization. Need for emergency major/minor surgery: No There are no social concerns with this patient. Prescription drug management Prescriptions will include symptomatic care Patient's prior external medical records from other ER visits were reviewed by me as indicated. Prior testing and results from previous visits were reviewed. Prior tests were taken into account with medical decision making and resource utilization, independent historian/historians were used to obtain complete medical history. I independently interpreted the test that were performed, results were reviewed by me and considered findings on radiology if ordered. Medical management and examination interpretation discussions were had by me with other qualified healthcare professionals as indicated for the patient's care. Problem List Problem List: (1) Hypertensive urgency (2) Severe sepsis (3) Complicated UTI (urinary tract infection) DX & DISP Disposition: Inpatient Departure Impression: Primary Impression: Severe sepsis Additional Impressions: Hypertensive urgency, Complicated UTI (urinary tract infection) Condition: Stable Additional Instructions: Patient was informed of all the diagnostic labs and procedures conducted in the emergency room today and demonstrated understanding of the results. I personally reviewed and interpreted all the diagnostic exams performed in the ER today. The patient will be admitted to the hospital for further treatment and evaluation. Disposition-admit to facility Condition-stable/guarded Course-uncertain at this time Pain status-decreased Assessment-exam unchanged Admission Certification- I certify that the patients status is appropriate and is based on my best clinical judgment and the patient's condition as documented in the medical records Referrals: MAHESH LARSON MD (PCP) DIANE REED MD Mar 14, 2025 21:33
--- NOTE | 2025-03-14 21:36 | HMCIMG ---
EXAM: CR Chest, 1 View. CLINICAL HISTORY: sepsis COMPARISON: None provided. FINDINGS: LUNGS: The lungs show no infiltrate or other acute finding. PLEURAL SPACES: No evidence of pleural effusion or pneumothorax. MEDIASTINUM: The cardiomediastinal silhouette is within normal limits. BONES: No acute osseous abnormality. IMPRESSION: No acute cardiopulmonary pathology is evident. /[place]
--- NOTE | 2025-03-14 22:36 | HP ---
History of Present Illness Reason for Visit: fever History of Present Illness Mr. Holt is a 69-year-old male that was seen and examined today on 03/15/2025. Patient presents to the emergency department with a chief complaint of fever. Onset was today. Location is head. Duration is on and off. Character is described as, " like feeling cold. "There was no alleviating factors. Patient believes symptoms are aggravated by having a Martinez catheter removed at urology office yesterday. Patient required this Martinez catheter status post a shoulder surgery where he had subsequent urinary retention. Patient reports associated chills. Today in the emergency department CBC unremarkable, creatinine 1.4, lactic acid 3.0, no urinalysis has been collected or sent to lab, chest x-ray is unremarkable, today temperature was 103.3, heart rate 141, respirations 32, together with lactic acid of 3.0 and suspected source of infection being the urine patient met clinical sepsis criteria. Past Medical History Patient History: Cancer SISTER, (OVARIAN CANCER) Chronic obstructive lung disease FATHER, SISTER, SISTER Family history: Cardiovascular disease MOTHER, ADDITIONAL PAST MEDICAL HISTORY: [Hypertension, hyperlipidemia, renal cell carcinoma status post nephrectomy] SOCIAL HISTORY: [Negative for smoking. Patient drinks alcohol once every two weeks usually two beers that are 12 oz each. Patient denies drug use. Patient lives with his , Annabelle. Patient is typically independent of all his ADLs. Patient denies difficulty pain is bills.] SURGICAL HISTORY: [Right nephrectomy, left knee surgery, hernia repair, UroLift] Review of Systems General: Fever, Chills; No Night Sweats, No Fatigue, No Malaise, No Appetite, N o Other HEENT: No Head Aches, No Visual Changes, No Eye Pain, No Ear Pain, No Dysphasia, No Sinus Congestion, No Post Nasal Drip, No Sore Throat, No Other Pulmonary: No Dyspnea, No Cough, No Pleuritic Chest Pain, No Other Gastrointestinal: No: Nausea, Vomiting, Abdominal Pain, Diarrhea, Constipation, Melena, Hematochezia, Other Genitourinary: No Dysuria, No Frequency, No Incontinence, No Hematuria, No Retention; Other (Retention) Musculoskeletal: No: other, neck pain, shoulder pain, arm pain, back pain, hand pain, leg pain, foot pain Skin: No Urticaria, No Rash, No Other Neurological: No: Weakness, Numbness, Incoordination, Change in speech, Confusion, Seizures, Other Allergies: Coded Allergies: No Known Drug Allergies (Verified Allergy, Unknown, 07/15/16) Scheduled Allopurinol (Allopurinol), 200 MG PO HS, (Reported) Aspirin (Aspirin 81 Mg Ectab), 81 MG PO BID Atorvastatin Calcium (Atorvastatin Calcium), 20 MG PO HS, (Reported) Cholecalciferol (Vitamin D3) (Vitamin D3), 50 MCG PO HS, (Reported) Losartan Potassium (Losartan Potassium), 100 MG PO HS, (Reported) Tamsulosin HCl (Flomax), 0.4 MG PO HS, (Reported) Vit B Cmplx 3/FA/Vit C/Biotin (Yolanda-Herminio Rx Tablet), 1 EACH PO HS, (Reported) Scheduled PRN Oxycodone HCl/Acetaminophen (Percocet 5-325 mg Tablet), 1-2 TAB PO Q8H PRN for Acute post-op pain (G89.18) Exam Vital Signs Vital Signs Date Time Temp Pulse Resp B/P (MAP) Pulse Ox O2 Delivery O2 Flow Rate FiO2 03/14/25 21:01 102.9 122 20 162/87 97 Room Air* 0 21 General Appearance: Alert, Oriented X3, Cooperative, No acute distress HEENT: Atraumatic, EOMI, Mucous membr. moist/pink Respiratory: Clear to auscultation, Normal air movement, NL respiratory effort Cardiovascular: Normal S1, Normal S2, Other (Tachycardia) Abdominal: Normal bowel sounds, No tenderness Extremities: No edema Skin: No significant lesion Neuro: Normal speech, Strength at 5/5 X4 ext, Sensation intact, Cranial nerves 3-12 NL Psych/Mental Status: Mental status NL, Mood NL, Thoughts/Content NL Assessment/Plan ASSESSMENT: [ Sepsis, POA Hyperlactatemia, POA Acute kidney injury, POA, on 01/08/2025 creatinine 1.1, today it is 1.4 Hypertension Hyperlipidemia] PLAN: [ Admit patient to medical floor as inpatient status. Place patient on telemetry monitoring. Patient received fluid resuscitation with 0.9% NS 30 mL/kg Empiric antibiotic therapy with Zosyn Check blood culture, follow up with the results Check urinalysis, follow up with the results Obtain urine culture if urinalysis shows UTI Flomax 0.4 mg by mouth once daily 1st dose now Check procalcitonin, follow up with the results Repeat lactic acid in a.m. IV fluid maintenance therapy lactated Ringer's at 75 mL/HR Avoid nephrotoxic agents when possible Renally dose all medications when possible Monitor intake and output every shift Weight patient daily Consider resuming home medications once they have been reconciled At time of admission home medications not been reconciled For now: Hydralazine 10 mg IV every 4 hours for systolic blood pressure greater than 160 mmHg Atorvastatin 40 mg by mouth once daily GI prophylaxis, Protonix DVT prophylaxis, heparin ADVANCED CARE PLANNING 1. Which of the following were discussed? Hospice Care - Yes Therapeutic options - yes Advance Directives - Yes - patient states he does not have any advance directives in place at this time, however his , Annabelle can make decisions for him if he becomes unable. Other discussions - patient wishes to remain a full code 2. Discussed with who? Patient 3. Voluntary nature of this service was explained to the patient? Yes 4. Amount of time spent - ___16 minutes____ 5. Reviewed by Physician? (if this service was performed by NPP) Yes This document was generated in part using voice recognition software, occasional wrong word or sound alike substitutions may have occurred due to the inherent limitations of voice recognition software. Read the chart carefully and recognize using context, where the substitutions have occurred. Although every effort was made to edit the content, perianesthesia nurse and typing errors may occur ATTESTATION BY PHYSICIAN I have seen and examined the patient. I reviewed the documentation, medical decision making, and treatment plan as noted by the mid-level provider above. I agree with the findings and plan of care. ] [facility] Mar 14, 2025 22:36
[2025-03-14] MEDS ORDERED: LACTULOSE 20 GM/30 ML UDCUP PO PRN (23:00)
[2025-03-14] MEDS: ZOSYN 3.375GM +NS 50ML IV ONE (23:12)
[2025-03-14] MEDS: LACTATED RINGERS 1000ML 1,000 ML IV SCH (23:12)
[2025-03-14] MEDS: VANCOMYCIN KIT 1 GM/250 ML IV.KIT IV ONE (23:34)
[2025-03-14 23:40] LABS: APPEARANCE,URINE CLEAR (CLEAR); GLUCOSE, URINE (UA) NEGATIVE (NEGATIVE); LEUKOCYTE ESTERASE ,URINE 250 Leu/uL (NEGATIVE); NITRATE,URINE NEGATIVE (NEGATIVE); OCCULT BLOOD,URINE NEGATIVE (NEGATIVE)
[2025-03-14 23:44] LABS: ADD UA MICROSCOPIC YES; CREATININE,URINE RANDOM 34.47 mg/dL (30-135)
[2025-03-14 23:46] LABS: SQUAMOUS EPITHELIAL CELL,UR RARE /HPF (0-2)
[2025-03-14 23:58] LABS: COVID19 (SARS ANTIGEN RAPID) PRESUMPTIVE NEGATIVE (NEGATIVE); INFLUENZA TYPE A Negative For Type A (NEGATIVE); INFLUENZA TYPE B Negative For Type B (NEGATIVE)
--- NOTE | 2025-03-15 02:17 | NUR ---
REPORT GIVEN TO NURSE SMITH, ALL QUESTIONS ANSWERED AT THIS TIME
[2025-03-15 04:04] VITALS: BP 132/64; PULSE 119; RESP 20; TEMP 97.9
[2025-03-15 06:22] LABS: IMMATURE GRANULOCYTE ABSOLUTE 0.06 K/uL (0-1); NUCLEATED RED BLOOD CELLS 0.0 % (0.0-0.19); PLATELET COUNT (AUTO) 153 K/uL (130-400); RED BLOOD CELL COUNT(AUTO) 4.13 MIL/uL (4.50-6.20); RED CELL DISTRIBUTION WIDTH 14.8 % (11.0-15.5); WHITE BLOOD COUNT (AUTO) 12.5 K/uL (4.8-10.8)
[2025-03-15] MEDS: ZOSYN 3.375GM +NS 50ML IV SCH (06:33)
--- NOTE | 2025-03-15 06:35 | EKG ---
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
[2025-03-15 06:38] LABS: CREATININE 1.1 mg/dL (0.5-1.3); GLOMERULAR FILTR. RATE CALC 72.0 mL/min (>90); GLUCOSE,RANDOM 121.0 mg/dL (70-105); PHOSPHORUS 3.5 mg/dL (2.5-4.9); SODIUM SERUM 140.0 mmol/L (136-145); UREA NITROGEN, BLOOD 10.0 mg/dL (7-18)
[2025-03-15 08:00] VITALS: BP 165/76; PULSE 95; RESP 15; TEMP 99.1; O2SAT 95
[2025-03-15] MEDS: MAGNESIUM OXIDE 400 MG TABLET PO ONE (09:05)
[2025-03-15] MEDS: PoTASSium chl 10% ELIXIR 20MEQ 20 MEQ/15 ML UDCUP PO PRN (09:08)
[2025-03-15 12:00] VITALS: BP 117/87; PULSE 95; RESP 18; TEMP 100
--- NOTE | 2025-03-15 13:05 | NUR ---
DCP:HOME Pt currently lives with his Annabelle Holt [phone]. pt does not use any DME, home health, or provider services. Pt states that he is able to complete ADLs independently. PCP is Dr. Eriberto Garcia ([facility]) and uses the [facility] for any RX needs. At [place] pt will want to go home and family can assist with transportation. Addendum: 03/15/25 at 1307 by EVER TRUJILLO SS Amended: Links added.
[2025-03-15] MEDS ORDERED: LATA2.5D7 OP (13:41)
[2025-03-15 15:41] VITALS: TEMP 98.6
[2025-03-15 16:00] VITALS: BP 122/61; PULSE 90; RESP 16; TEMP 99.5
--- NOTE | 2025-03-15 17:00 | PN ---
[facility] PROGRESS NOTE Date of Service: Mar 15, 2025 Time of Service: 16:17 SUBJECTIVE: He is a 69-year-old male with a past medical history of hypertension, hyperlipidemia, gout, glaucoma, renal cell carcinoma status post nephrectomy, had surgical history of left knee surgery, hernia repair, UroLift came to the ER with the chief complaint of fever and chills. Patient drinks alcohol once every two weeks usually two beers that are 12 oz each. Three weeks back he had a left knee surgery then he developed urinary retention which he had a Martinez is placed which was changed twice. Third catheter was removed yesterday at the urology office as he was able to pee properly. Yesterday night he had fever and chills. He has to pee for every 10 to 15 min. He came to the ER there his lab work show that WBC is 9.9, lactate is 3. His vitals show that Temperature is 103.3, pulse is 141, RR is 32, BP is 226/114. Urinalysis showed leukocyte esterase is 250 and WBC is 26 to 50. He was diagnosed with Urinary tract infection. He is started on Zosyn. Blood and urine cultures are sent. He was admitted to the hospital for further management. 03/16/2025: Patient is seen and examined in the room 409. He has no symptoms. His vitals are in the normal range except for blood pressure is 165/76. On examination his heart and lungs are normal, his abdomen is warm to touch, there is tenderness in the lower abdomen. His labs are normal except for WBC is 12.5, Hb is 12, chloride is 100, creatinine is 1.4, lactic acid 3, glucose is 109, CRP is 7. His blood culture and urine culture show gram negative rods. Identification and susceptibility are in process. He is on telemetry. He also has a appointment for C-scan of prostate scheduled at [facility] on Mar 21. His is bringing the paperwork tomorrow. He is seeing for urology. REVIEW OF SYSTEMS CONSTITUTIONAL: fevers, chills Denies night sweats. No unintentional weight loss reported. NEUROLOGICAL: Denies headache, amaurosis fugax, motor weakness, sensory deficit, vertigo/spinning sensation, gait abnormalities, or tremors. ENT: No hearing loss, otalgia, otorrhea, rhinitis, rhinorrhea, hoarseness, or sore throat. CARDIOVASCULAR: Denies any exertional angina, dyspnea on exertion, orthopnea, paroxysmal nocturnal dyspnea, palpitations, life-threatening arrhythmias, claudication. PULMONARY: Denies any shortness of breath, cough, phlegm/sputum, hemoptysis, pl euritic chest pain. SLEEP: Denies morning headaches, daytime somnolence or napping. Denies difficulty falling asleep, staying asleep, waking from sleep. Denies knowledge of snoring. GASTROINTESTINAL: Denies any type of dysphagia to either liquids or solids. Denies nausea, vomiting, pyrosis, early satiety, abdominal pain, diarrhea, constipation, or changes in stool consistency or caliber. Denies coffee-ground emesis, hematemesis, hematochezia, or melanotic stools. GENITOURINARY: Frequency Denies urgency, nocturia, hematuria or incontinence (Storage/Irritative symptoms.) Low urinary stream, straining to void, urinary intermittency or hesitancy, splitting of the voiding stream, terminal dribbling. ENDOCRINOLOGIC: Denies polyuria, polydipsia, polyphagia or heat/cold intoleran denae. HEMATOLOGIC: Denies thrombophilia/previous clots, or coagulopathy/bleeding disorders. ONCOLOGIC: Denies personal history of malignancy. DERMATOLOGIC: Denies rashes or pruritus. PSYCHIATRIC: Denies any suicidal or homicidal ideation. Denies hallucinations. PHYSICAL EXAM GENERAL APPEARANCE: The patient is awake, alert, and oriented, in no acute cardiopulmonary distress. NEUROLOGICAL: Cranial nerves II-XII grossly intact. Motor is 5/5 in bilateral upper and lower extremities proximal to distal. No sensory deficits. HEENT: Face is symmetric. Pupils are equal and reactive. Extraocular movements are intact. NECK: Supple. No JVD. No thyromegaly. No submental, submandibular, pre- /postauricular, occipital or supraclavicular lymphadenopathy. CHEST: Normal chest expansion. No Telemetry. LUNGS: Absence of any rales, rhonchi or any wheezing. CARDIOVASCULAR: Regular. S1 and S2 normal. No appreciable rubs, murmurs or gallops. ABDOMEN: Warm to touch and tenderness in the lower abdomen Soft and nondistended. There is no rebound, voluntary guarding, or rigidity. : Deferred. No Martinez. EXTREMITIES: Non-edematous and not cyanotic. No clubbing. Good capillary refill. SKIN: No skin breakdown. Vital Signs (last 8hr) Date Time Temp Pulse Resp B/P (MAP) Pulse Ox O2 Delivery O2 Flow Rate FiO2 03/15/25 16:00 99.5 90 16 122/61 93 Room Air 03/15/25 15:41 98.6 03/15/25 12:00 100.0 95 18 117/87 93 Room Air LABS: Laboratory: Test 03/15/25 06:12 03/14/25 23:30 03/14/25 20:59 03/14/25 20:58 Range/Units White Blood Count 12.5 #H 4.8-10.8 K/uL Red Blood Count 4.13 L 4.50-6.20 MIL/uL Hemoglobin 12.0 L 14.0-18.0 g/dL Hematocrit 36.0 L 42-54 % Mean Corpuscular Volume 87.2 79-99 fL Mean Corpuscular Hemoglobin 29.1 27.0-33.0 pg Mean Corpuscular Hemoglobin Concent 33.3 32.0-36.0 g/dL Red Cell Distribution Width 14.8 11.0-15.5 % Platelet Count 153 # 130-400 K/uL Mean Platelet Volume 9.1 7.5-10.5 fL Immature Granulocyte % (Auto) 0.5 0-1 % Neutrophils (%) (Auto) 85.7 H 40.0-77.0 % Lymphocytes (%) (Auto) 8.1 L 21.0-51.0 % Monocytes (%) (Auto) 5.5 3.0-13.0 % Eosinophils (%) (Auto) 0.0 0.0-8.0 % Basophils (%) (Auto) 0.2 0.0-5.0 % Neutrophils # (Auto) 10.7 H 1.8-7.7 K/uL Lymphocytes # (Auto) 1.0 1.0-4.8 K/uL Monocytes # (Auto) 0.7 0.1-1.0 K/uL Eosinophils # (Auto) 0.00 0.00-0.70 K/uL Basophils # (Auto) 0.02 0.00-0.20 K/uL Absolute Immature Granulocyte (auto 0.06 0-1 K/uL Nucleated Red Blood Cells 0.0 0.0-0.19 % White Cell Morphology Comment See comments Sodium Level 140 136-145 mmol/L Potassium Level 3.5 3.5-5.1 mmol/L Chloride Level 107 101-111 mmol/L Carbon Dioxide Level 25 21-32 mmol/L Blood Urea Nitrogen 10 7-18 mg/dL Creatinine 1.1 0.5-1.3 mg/dL Glomerular Filtration Rate Calc 72 >90 mL/min Random Glucose 121 H 70-105 mg/dL Hemoglobin A1c 5.7 4.0-6.0 % Estimated Average Glucose (eAG) 117 70-126 mg/dL Lactic Acid Level 1.3 0.8-2.5 mmol/L Total Calcium 8.3 L 8.5-10.1 mg/dL Phosphorus Level 3.5 2.5-4.9 mg/dL Magnesium Level 1.50 L 1.80-2.40 mg/dL C-Reactive Protein, Quantitative 7.00 H 0.5-3.0 mg/L Thyroid Stimulating Hormone (TSH) 1.36 0.36-3.74 uIU/mL Urine Color COLORLESS YELLOW Urine Appearance CLEAR CLEAR Urine pH 5.5 5.0-8.0 Urine Specific [place] 1.004 1.001-1.031 Urine Protein NEGATIVE NEGATIVE mg/dL Urine Glucose (UA) NEGATIVE NEGATIVE mg/dL Urine Ketones NEGATIVE NEGATIVE mg/dL Urine Occult Blood NEGATIVE NEGATIVE Urine Nitrate NEGATIVE NEGATIVE Urine Bilirubin NEGATIVE NEGATIVE mg/dL Urine Urobilinogen 0.2 0.2-1.0 mg/dL Urine Leukocyte Esterase 250 H NEGATIVE Oralia/uL Urine RBC 0-1 0-1 /HPF Urine WBC 26-50 H 0-1 /HPF Urine Squamous Epithelial Cells RARE 0-2 /HPF Urine Bacteria FEW None Seen /HPF Urine Osmolality 187 50-1200 mOsm/kg Urine Random Creatinine 34.47 30-135 mg/dL Urine Random Sodium 41 40-220 mmol/l Influenza Type A Antigen Negative For Type A NEGATIVE Influenza Type B Antigen Negative For Type B NEGATIVE SARS-CoV-2 Antigen (Rapid) PRESUMPTIVE NEGATIVE NEGATIVE Procalcitonin < 0.05 L 0.05-0.5 ng/mL Troponin I High Sensitivity 10 4-75 ng/L Test 03/14/25 20:53 Range/Units Total Creatine Kinase 115 21-232 U/L Current Medications Medications (Trade) Dose Ordered Sig/Lory Route PRN Reason Start Time Stop Time Status Last Admin Dose Admin Acetaminophen (TYLenol 325MG TAB) 650 mg Q6H PRN PO MILD PAIN (1-3)/TEMP > 101.5 03/14/25 23:00 04/13/25 22:59 03/15/25 13:37 650 MG Atorvastatin Calcium (LIPItor 40MG) 40 mg HS PO 03/15/25 21:00 04/14/25 20:59 Heparin Sodium (Porcine) (HEParin 5,000 UNIT VIAL) 5,000 unit BID SQ 03/15/25 09:00 04/14/25 08:59 03/15/25 09:05 5,000 UNIT Home Med (Home Medication) (Cholecalciferol (Vitamin D3) 50 MCG) HS PO 03/15/25 21:00 04/14/25 20:59 Hydralazine HCl (APRESOLine 20MG INJ) 10 mg Q6H PRN IV For:SBP above 160;DBP above 90 03/14/25 23:00 04/13/25 22:59 Hydromorphone HCl (DiLAUDid 0.5MG INJ) 0.25 mg Q4H PRN IVP SEVERE PAIN (7-10) 03/14/25 23:00 03/19/25 22:59 Lactated Ringer's 1,000 ml @ 75 mls/hr [id number] IV 03/14/25 23:00 04/13/25 22:59 03/15/25 12:30 75 MLS/HR Lactulose (Constulose 20gm/ 30ml Udcup) 20 gm BID PRN PO CONSTIPATION 03/14/25 23:00 04/13/25 22:59 Losartan Potassium (CozAAR 100MG TAB) 100 mg HS PO 03/15/25 21:00 04/14/25 20:59 Magnesium Sulfate 50 ml @ 0 mls/hr PROTOCOL PRN IV mgprotocol 03/15/25 08:00 04/14/25 07:59 Pantoprazole Sodium (PROTonix 40MG TAB) 40 mg DAILY PO 03/15/25 09:00 04/14/25 08:59 03/15/25 09:05 40 MG Piperacillin Sod/ Tazobactam Sod (Zosyn 3.375gm+NS 50ml) 3.375 gm Q8H IV 03/15/25 06:00 03/25/25 05:59 03/15/25 13:37 3.375 GM Potassium Chloride 100 ml @ 50 mls/hr AD PRN IV POTASSIUM PROTOCOL 03/15/25 08:00 04/14/25 07:59 Potassium Chloride 100 ml @ 100 mls/hr AD PRN IV POTASSIUM PROTOCOL 03/15/25 08:00 04/14/25 07:59 Potassium Chloride (K-Dur/Klor-Con 20meq) 20 meq AD PRN PO POTASSIUM PROTOCOL 03/15/25 08:00 04/14/25 07:59 Potassium Chloride (KCl 10% Elixir 20meq/15ml) 20 meq AD PRN PO POTASSIUM PROTOCOL 03/15/25 08:00 04/14/25 07:59 03/15/25 12:30 20 MEQ Tamsulosin HCl (FloMAX) 0.4 mg DAILY PO 03/15/25 09:00 04/14/25 08:59 03/15/25 09:05 0.4 MG DIAGNOSTICS / RADIOLOGY: [place] [address] IMAGING REPORT Signed PATIENT: THUY HOOVER MR#: [id number] : 1955 SEX: M AGE: 69 LOCATION: [facility] ORDER 01 STATUS: REG ER REPORT#: [id number] SERVICE 58 REASON: sepsis ORDERING PHYSICIAN: DIANE RUBIN MD PROCEDURE: CXR1VW - CHEST 1VW EXAM: CR Chest, 1 View. CLINICAL HISTORY: sepsis COMPARISON: None provided. FINDINGS: LUNGS: The lungs show no infiltrate or other acute finding. PLEURAL SPACES: No evidence of pleural effusion or pneumothorax. MEDIASTINUM: The cardiomediastinal silhouette is within normal limits. BONES: No acute osseous abnormality. IMPRESSION: No acute cardiopulmonary pathology is evident. /[place] DICTATED BY: QUINN BERNARDO MD DATE: 03/14/252234 ELECTRONICALLY SIGNED BY: QUINN BERNARDO MD DATE: 03/14/252234 ASSESSMENT: Sepsis, POA urinary tract infection Hyperlactatemia, POA, resolved Elevated leukocytes Acute kidney injury, POA, on 01/08/2025 creatinine 1.1 Hypertension Hyperlipidemia Glaucoma Gout PLAN: Sepsis, POA urinary tract infection His urinalysis showed leucocyte esterase is 250 and WBC is 26 to 50. Urine culture and blood culture showed gram negative rods He is started on Zosyn. Continue Zosyn (day 2). Hyperlactatemia, POA, resolved His lactate level is 3>1.3>1.3. Elevated leukocytes Today his WBC increased from 9.9 to 12.5 Will repeat his labs tomorrow. Acute kidney injury, POA, on 01/08/2025 creatinine 1.1 Today his creatine level decreased from 1.4 to 1.1 and BUN increased from 9 to 10. Will repeat his labs tomorrow. Hypertension Today his blood pressure is 122/61 Continue Losartan Hyperlipidemia Continue Atorvastatin. Glaucoma He has no symptoms today. Continue latanoprost eye drops. Gout He has no symptoms today. Will check his uric acid levels. Continue allopurinol DVT prophylaxis with heparin. He is on consistent carb diet. GI prophylaxis with famotidine. ATTESTATION BY PHYSICIAN I have seen and examined the patient. I reviewed the documentation, medical d ecision making, and treatment plan as noted by the resident provider above. I agree with the findings and plan of care. Lonnie Christie MD, AKSHAY MD Mar 15, 2025 17:00
[2025-03-15 20:00] VITALS: BP 133/64; PULSE 77; RESP 18; TEMP 98.3; O2SAT 92
[2025-03-15] MEDS: LATANOPROST 2.5 ML DROPS OP SCH (20:14)
[2025-03-15] MEDS: FAMOTIDINE 20MG VIAL IV SCH (20:14)
[2025-03-15] MEDS: (Cholecalciferol (Vitamin D3) 50 MCG) PO SCH (20:19)
[2025-03-16] VITALS (7 sets, daily range): BP systolic 114–144; BP diastolic 57–69; PULSE 64–84; RESP 15–20; TEMP 98.1–98.8; O2SAT 96–98
[2025-03-16 04:40] LABS: NUCLEATED RED BLOOD CELLS 0.0 % (0.0-0.19); PLATELET COUNT (AUTO) 126.0 K/uL (130-400); RED BLOOD CELL COUNT(AUTO) 4.07 MIL/uL (4.50-6.20); RED CELL DISTRIBUTION WIDTH 15.2 % (11.0-15.5); WHITE BLOOD COUNT (AUTO) 12.7 K/uL (4.8-10.8)
[2025-03-16 04:53] LABS: CREATININE 1.2 mg/dL (0.5-1.3); GLOMERULAR FILTR. RATE CALC 65.0 mL/min (>90); GLUCOSE,RANDOM 111.0 mg/dL (70-105); SODIUM SERUM 138.0 mmol/L (136-145); UREA NITROGEN, BLOOD 10.0 mg/dL (7-18)
[2025-03-16] MEDS: MAGNESIUM 2GM PREMIX 50ML 50 ML IV PRN (04:58)
[2025-03-16] MEDS: PoTASSium chloRIDE 20MEQ ER 20 MEQ ERTAB PO PRN (04:59)
--- NOTE | 2025-03-16 09:28 | PN ---
[facility] PROGRESS NOTE Date of Service: Mar 16, 2025 Time of Service: 09:26 SUBJECTIVE: He is a 69-year-old male with a past medical history of hypertension, hyperlipidemia, gout, glaucoma, renal cell carcinoma status post nephrectomy, had surgical history of left knee surgery, hernia repair, UroLift came to the ER with the chief complaint of fever and chills. Patient drinks alcohol once every two weeks usually two beers that are 12 oz each. Three weeks back he had a left knee surgery then he developed urinary retention which he had a Martinez is placed which was changed twice. Third catheter was removed yesterday at the urology office as he was able to pee properly. Yesterday night he had fever and chills. He has to pee for every 10 to 15 min. He came to the ER there his lab work show that WBC is 9.9, lactate is 3. His vitals show that Temperature is 103.3, pulse is 141, RR is 32, BP is 226/114. Urinalysis showed leukocyte esterase is 250 and WBC is 26 to 50. He was diagnosed with Urinary tract infection. He is started on Zosyn. Blood and urine cultures are sent. He was admitted to the hospital for further management. 03/16/2025: Patient is seen and examined in the room 409. He has no symptoms. His vitals are in the normal range except for blood pressure is 165/76. On examination his heart and lungs are normal, his abdomen is warm to touch, there is tenderness in the lower abdomen. His labs are normal except for WBC is 12.5, Hb is 12, chloride is 100, creatinine is 1.4, lactic acid 3, glucose is 109, CRP is 7. His blood culture and urine culture show gram negative rods. Identification and susceptibility are in process. He is on telemetry. He also has a appointment for C-scan of prostate scheduled at [facility] on Mar 21. His is bringing the paperwork tomorrow. He is seeing for urology. 03/16/2025: Patient was seen and evaluated in room 409. He reports feeling well and denies fever, chest pain, chills, or other complaints. He is currently taking ibuprofen. Laboratory results show potassium 3.2; potassium replacement protocol has been initiated. Procalcitonin is 4.37 and CRP is 168, both slightly elevated from yesterdays values. He had a normal bowel movement. Urine culture grew Citrobacter koseri, susceptible to all tested antibiotics. He is currently receiving Zosyn. Monitoring will continue. REVIEW OF SYSTEMS CONSTITUTIONAL: Denies fevers, chills, night sweats. No unintentional weight loss reported. NEUROLOGICAL: Denies headache, amaurosis fugax, motor weakness, sensory deficit, vertigo/spinning sensation, gait abnormalities, or tremors. ENT: No hearing loss, otalgia, otorrhea, rhinitis, rhinorrhea, hoarseness, or sore throat. CARDIOVASCULAR: Denies any exertional angina, dyspnea on exertion, orthopnea, paroxysmal nocturnal dyspnea, palpitations, life-threatening arrhythmias, claudication. PULMONARY: Denies any shortness of breath, cough, phlegm/sputum, hemoptysis, pleuritic chest pain. SLEEP: Denies morning headaches, daytime somnolence or napping. Denies difficulty falling asleep, staying asleep, waking from sleep. Denies knowledge of snoring. GASTROINTESTINAL: Denies any type of dysphagia to either liquids or solids. Denies nausea, vomiting, pyrosis, early satiety, abdominal pain, diarrhea, constipation, or changes in stool consistency or caliber. Denies coffee-ground emesis, hematemesis, hematochezia, or melanotic stools. GENITOURINARY: Frequency Denies urgency, nocturia, hematuria or incontinence (Storage/Irritative symptoms.) Low urinary stream, straining to void, urinary intermittency or hesitancy, splitting of the voiding stream, terminal dribbling. ENDOCRINOLOGIC: Denies polyuria, polydipsia, polyphagia or heat/cold intolerances. HEMATOLOGIC: Denies thrombophilia/previous clots, or coagulopathy/bleeding disorders. ONCOLOGIC: Denies personal history of malignancy. DERMATOLOGIC: Denies rashes or pruritus. PSYCHIATRIC: Denies any suicidal or homicidal ideation. Denies hallucinations. PHYSICAL EXAM GENERAL APPEARANCE: The patient is awake, alert, and oriented, in no acute cardiopulmonary distress. NEUROLOGICAL: Motor is 5/5 in bilateral upper and lower extremities proximal to distal. No sensory deficits. HEENT: Face is symmetric. Pupils are equal and reactive. Extraocular movements are intact. NECK: Supple. No JVD. No thyromegaly. No submental, submandibular, pre- /postauricular, occipital or supraclavicular lymphadenopathy. CHEST: Normal chest expansion. No Telemetry. LUNGS: Absence of any rales, rhonchi or any wheezing. CARDIOVASCULAR: Regular. S1 and S2 normal. No appreciable rubs, murmurs or gallops. ABDOMEN: Soft and nondistended. There is no rebound, voluntary guarding, or rigidity. : Deferred. No Martinez. EXTREMITIES: Non-edematous and not cyanotic. No clubbing. Good capillary refill. SKIN: No skin breakdown. Vital Signs (last 8hr) Date Time Temp Pulse Resp B/P (MAP) Pulse Ox O2 Delivery O2 Flow Rate FiO2 03/16/25 04:00 98.4 78 18 132/57 93 Room Air LABS: Laboratory: Test 03/16/25 04:20 03/15/25 06:12 03/14/25 23:30 03/14/25 20:58 Range/Units White Blood Count 12.7 H 4.8-10.8 K/uL Red Blood Count 4.07 L 4.50-6.20 MIL/uL Hemoglobin 11.6 L 14.0-18.0 g/dL Hematocrit 35.5 L 42-54 % Mean Corpuscular Volume 87.2 79-99 fL Mean Corpuscular Hemoglobin 28.5 27.0-33.0 pg Mean Corpuscular Hemoglobin Concent 32.7 32.0-36.0 g/dL Red Cell Distribution Width 15.2 11.0-15.5 % Platelet Count 126 L 130-400 K/uL Mean Platelet Volume 9.5 7.5-10.5 fL Nucleated Red Blood Cells 0.0 0.0-0.19 % Sodium Level 138 136-145 mmol/L Potassium Level 3.2 L 3.5-5.1 mmol/L Chloride Level 105 101-111 mmol/L Carbon Dioxide Level 26 21-32 mmol/L Blood Urea Nitrogen 10 7-18 mg/dL Creatinine 1.2 0.5-1.3 mg/dL Glomerular Filtration Rate Calc 65 >90 mL/min Random Glucose 111 H 70-105 mg/dL Total Calcium 8.3 L 8.5-10.1 mg/dL Magnesium Level 1.60 L 1.80-2.40 mg/dL C-Reactive Protein, Quantitative 168.60 H 0.5-3.0 mg/L Procalcitonin 4.37 H 0.05-0.5 ng/mL Immature Granulocyte % (Auto) 0.5 0-1 % Neutrophils (%) (Auto) 85.7 H 40.0-77.0 % Lymphocytes (%) (Auto) 8.1 L 21.0-51.0 % Monocytes (%) (Auto) 5.5 3.0-13.0 % Eosinophils (%) (Auto) 0.0 0.0-8.0 % Basophils (%) (Auto) 0.2 0.0-5.0 % Neutrophils # (Auto) 10.7 H 1.8-7.7 K/uL Lymphocytes # (Auto) 1.0 1.0-4.8 K/uL Monocytes # (Auto) 0.7 0.1-1.0 K/uL Eosinophils # (Auto) 0.00 0.00-0.70 K/uL Basophils # (Auto) 0.02 0.00-0.20 K/uL Absolute Immature Granulocyte (auto 0.06 0-1 K/uL White Cell Morphology Comment See comments Hemoglobin A1c 5.7 4.0-6.0 % Estimated Average Glucose (eAG) 117 70-126 mg/dL Lactic Acid Level 1.3 0.8-2.5 mmol/L Phosphorus Level 3.5 2.5-4.9 mg/dL Thyroid Stimulating Hormone (TSH) 1.36 0.36-3.74 uIU/mL Urine Color COLORLESS YELLOW Urine Appearance CLEAR CLEAR Urine pH 5.5 5.0-8.0 Urine Specific [place] 1.004 1.001-1.031 Urine Protein NEGATIVE NEGATIVE mg/dL Urine Glucose (UA) NEGATIVE NEGATIVE mg/dL Urine Ketones NEGATIVE NEGATIVE mg/dL Urine Occult Blood NEGATIVE NEGATIVE Urine Nitrate NEGATIVE NEGATIVE Urine Bilirubin NEGATIVE NEGATIVE mg/dL Urine Urobilinogen 0.2 0.2-1.0 mg/dL Urine Leukocyte Esterase 250 H NEGATIVE Oralia/uL Urine RBC 0-1 0-1 /HPF Urine WBC 26-50 H 0-1 /HPF Urine Squamous Epithelial Cells RARE 0-2 /HPF Urine Bacteria FEW None Seen /HPF Urine Osmolality 187 50-1200 mOsm/kg Urine Random Creatinine 34.47 30-135 mg/dL Urine Random Sodium 41 40-220 mmol/l Influenza Type A Antigen Negative For Type A NEGATIVE Influenza Type B Antigen Negative For Type B NEGATIVE SARS-CoV-2 Antigen (Rapid) PRESUMPTIVE NEGATIVE NEGATIVE Troponin I High Sensitivity 10 4-75 ng/L Test 03/14/25 20:53 Range/Units Total Creatine Kinase 115 21-232 U/L Current Medications Medications (Trade) Dose Ordered Sig/Lory Route PRN Reason Start Time Stop Time Status Last Admin Dose Admin Acetaminophen (TYLenol 325MG TAB) 650 mg Q6H PRN PO MILD PAIN (1-3)/TEMP > 101.5 03/14/25 23:00 04/13/25 22:59 03/15/25 13:37 650 MG Atorvastatin Calcium (LIPItor 40MG) 40 mg HS PO 03/15/25 21:00 04/14/25 20:59 03/15/25 20:14 40 MG Famotidine (Pepcid 20mg Vial) 20 mg BID IV 03/15/25 21:00 04/14/25 20:59 03/16/25 08:27 20 MG Heparin Sodium (Porcine) (HEParin 5,000 UNIT VIAL) 5,000 unit BID SQ 03/15/25 09:00 04/14/25 08:59 03/15/25 20:19 5,000 UNIT Home Med (Home Medication) (Cholecalciferol (Vitamin D3) 50 MCG) HS PO 03/15/25 21:00 04/14/25 20:59 Hydralazine HCl (APRESOLine 20MG INJ) 10 mg Q6H PRN IV For:SBP above 160;DBP above 90 03/14/25 23:00 04/13/25 22:59 Hydromorphone HCl (DiLAUDid 0.5MG INJ) 0.25 mg Q4H PRN IVP SEVERE PAIN (7-10) 03/14/25 23:00 03/19/25 22:59 Lactated Ringer's 1,000 ml @ 75 mls/hr [id number] IV 03/14/25 23:00 04/13/25 22:59 03/16/25 02:13 75 MLS/HR Lactulose (Constulose 20gm/ 30ml Udcup) 20 gm BID PRN PO CONSTIPATION 03/14/25 23:00 04/13/25 22:59 Latanoprost (Xalatan) 1 DROP HS OP 03/16/25 21:00 04/14/25 20:59 Latanoprost (Xalatan) 1 drop HS OP 03/15/25 21:00 03/16/25 07:08 DC 03/15/25 20:14 1 DROP Losartan Potassium (CozAAR 100MG TAB) 100 mg HS PO 03/15/25 21:00 04/14/25 20:59 03/15/25 20:14 100 MG Magnesium Sulfate 50 ml @ 0 mls/hr PROTOCOL PRN IV mgprotocol 03/15/25 08:00 04/14/25 07:59 03/16/25 04:58 25 MLS/HR Pantoprazole Sodium (PROTonix 40MG TAB) 40 mg DAILY PO 03/15/25 09:00 04/14/25 08:59 03/16/25 08:27 40 MG Piperacillin Sod/ Tazobactam Sod (Zosyn 3.375gm+NS 50ml) 3.375 gm Q8H IV 03/15/25 06:00 03/25/25 05:59 03/16/25 06:56 3.375 GM Potassium Chloride 100 ml @ 50 mls/hr AD PRN IV POTASSIUM PROTOCOL 03/15/25 08:00 04/14/25 07:59 Potassium Chloride 100 ml @ 100 mls/hr AD PRN IV POTASSIUM PROTOCOL 03/15/25 08:00 04/14/25 07:59 Potassium Chloride (K-Dur/Klor-Con 20meq) 20 meq AD PRN PO POTASSIUM PROTOCOL 03/15/25 08:00 04/14/25 07:59 03/16/25 04:59 20 MEQ Potassium Chloride (KCl 10% Elixir 20meq/15ml) 20 meq AD PRN PO POTASSIUM PROTOCOL 03/15/25 08:00 04/14/25 07:59 03/15/25 12:30 20 MEQ Tamsulosin HCl (FloMAX) 0.4 mg DAILY PO 03/15/25 09:00 04/14/25 08:59 03/16/25 08:27 0.4 MG DIAGNOSTICS / RADIOLOGY: [ ] ASSESSMENT: Sepsis, POA urinary tract infection Hyperlactatemia, POA, resolved Elevated leukocytes Acute kidney injury, POA, on 01/08/2025 creatinine 1.1 Hypertension Hyperlipidemia Glaucoma Gout PLAN: Sepsis, POA urinary tract infection His urinalysis showed leucocyte esterase is 250 and WBC is 26 to 50. Urine culture grew Citrobacter koseri ( sensitive to Zosyn) and blood culture showed gram negative rods He is started on Zosyn. Continue Zosyn (day 3). Hyperlactatemia, POA, resolved His lactate level is 3>1.3>1.3>1.1. Elevated leukocytes Today his WBC increased from 9.9 to 12.7 Will repeat his labs tomorrow. Acute kidney injury, POA, on 01/08/2025 creatinine 1.1 Today his creatine -1.2 and BUN increased from 9 to 10. Will repeat his labs tomorrow. Hypertension Today his blood pressure is 132/57 Continue Losartan Hyperlipidemia Continue Atorvastatin. Glaucoma He has no symptoms today. Continue latanoprost eye drops. Gout He has no symptoms today. uric acid-2.5 Continue allopurinol DVT prophylaxis with heparin. He is on consistent carb diet. GI prophylaxis with famotidine. ATTESTATION BY PHYSICIAN I have seen and examined the patient. I reviewed the documentation, medical decision making, and treatment plan as noted by the resident provider above. I agree with the findings and plan of care. Lonnie Christie MD, LAKSHMI MD Mar 16, 2025 09:28
[2025-03-16] MEDS: LATANOPROST 2.5 ML DROPS OP SCH (19:42)
[2025-03-17] VITALS (8 sets, daily range): BP systolic 128–140; BP diastolic 64–83; PULSE 58–68; RESP 15–20; TEMP 97.8–98.4; O2SAT 94–97
[2025-03-17 04:17] LABS: IMMATURE GRANULOCYTE ABSOLUTE 0.06 K/uL (0-1); NUCLEATED RED BLOOD CELLS 0.0 % (0.0-0.19); PLATELET COUNT (AUTO) 155 K/uL (130-400); RED BLOOD CELL COUNT(AUTO) 3.82 MIL/uL (4.50-6.20); RED CELL DISTRIBUTION WIDTH 15.2 % (11.0-15.5); WHITE BLOOD COUNT (AUTO) 10.5 K/uL (4.8-10.8)
[2025-03-17 04:31] LABS: CREATININE 1.2 mg/dL (0.5-1.3); GLOMERULAR FILTR. RATE CALC 65.0 mL/min (>90); GLUCOSE,RANDOM 96.0 mg/dL (70-105); SODIUM SERUM 139.0 mmol/L (136-145); UREA NITROGEN, BLOOD 10.0 mg/dL (7-18)
--- NOTE | 2025-03-17 08:24 | CONS ---
INFECTIOUS DISEASE CONSULTATION DATE OF SERVICE: 03/16/2025 REQUESTING PHYSICIAN: Dr. Christie. REASON FOR CONSULTATION: Gram-negative sepsis and UTI. HISTORY OF PRESENT ILLNESS: A 69-year-old male with hypertension, dyslipidemia, obesity, right renal cell carcinoma, presented to the hospital with fever and dysuria. T-max was 103.3. Urine culture grew Citrobacter species. Blood culture is growing Gram-negative francesca. The patient is started on Zosyn. Procalcitonin is elevated. Denies cough or shortness of breath. No palpitations or orthopnea. PAST MEDICAL HISTORY: 1. Hypertension. 2. Dyslipidemia. 3. Obesity. 4. Right renal cell carcinoma. PAST SURGICAL HISTORY: 1. 2. Left total knee arthroplasty. 3. Left knee revision arthroplasty. ALLERGIES: No known drug allergies. CURRENT MEDICATIONS: SOCIAL HISTORY: Denies alcohol, tobacco or illicit drug use. FAMILY HISTORY: Noncontributory. REVIEW OF SYSTEMS: Greater than 10 systems were reviewed, negative except as documented above. PHYSICAL EXAMINATION: GENERAL: Elderly male, awake. VITAL SIGNS: Temperature 98.3, pulse 79, blood pressure 144/69. EYES: No icterus. Pupils equal and reactive. HENT: No oral thrush seen. Moist oral mucosa. NECK: Supple. No JVD or thyromegaly. LUNGS: Good air entry. No rales. No rhonchi. CARDIOVASCULAR: S1 and S2 regular. No murmur heard. ABDOMEN: Obese, soft, nontender. Bowel sounds are present. CENTRAL NERVOUS SYSTEM: Awake, alert, oriented x 3. No focal deficits. SKIN: No rashes. LYMPHATIC: No peripheral lymphadenopathy. BACK: No deformity or pressure ulcer. MUSCULOSKELETAL: No joint swelling, erythema or tenderness. LABORATORY DATA: Sodium 138, potassium 3.2, BUN 10, creatinine 1.2. WBC 12.7, hemoglobin 11.6, platelets . Urine culture grew Citrobacter species. Blood culture is growing Gram-negative francesca. ASSESSMENT: A 69-year-old male presented with fever urinary symptoms CURRENT PROBLEMS: Include: 1. Gram negative sepsis 2. Urinary tract infection. 3. Hypokalemia. 4. Obesity. 5. Hypertension. PLAN: 1. Continue zosyn 2. Continue antihypertensive 3. Continue pain management. 4. The patient will be followed up closely. Thank you for allowing me to participate in the care of this patient. TID: [id number] RECEIPT: [id number]
--- NOTE | 2025-03-17 16:10 | PN ---
[facility] PROGRESS NOTE Date of Service: Mar 17, 2025 Time of Service: 15:55 SUBJECTIVE: He is a 69-year-old male with a past medical history of hypertension, hyperlipidemia, gout, glaucoma, renal cell carcinoma status post nephrectomy, had surgical history of left knee surgery, hernia repair, UroLift came to the ER with the chief complaint of fever and chills. Patient drinks alcohol once every two weeks usually two beers that are 12 oz each. Three weeks back he had a left knee surgery then he developed urinary retention which he had a Martinez is placed which was changed twice. Third catheter was removed yesterday at the urology office as he was able to pee properly. Yesterday night he had fever and chills. He has to pee for every 10 to 15 min. He came to the ER there his lab work show that WBC is 9.9, lactate is 3. His vitals show that Temperature is 103.3, pulse is 141, RR is 32, BP is 226/114. Urinalysis showed leukocyte esterase is 250 and WBC is 26 to 50. He was diagnosed with Urinary tract infection. He is started on Zosyn. Blood and urine cultures are sent. He was admitted to the hospital for further management. 03/15/2025: Patient is seen and examined in the room 409. He has no symptoms. His vitals are in the normal range except for blood pressure is 165/76. On examination his heart and lungs are normal, his abdomen is warm to touch, there is tenderness in the lower abdomen. His labs are normal except for WBC is 12.5, Hb is 12, chloride is 100, creatinine is 1.4, lactic acid 3, glucose is 109, CRP is 7. His blood culture and urine culture show gram negative rods. Identification and susceptibility are in process. He is on telemetry. He also has a appointment for C-scan of prostate scheduled at [facility] on Mar 21. His is bringing the paperwork tomorrow. He is seeing for urology. 03/16/2025: Patient was seen and evaluated in room 409. He reports feeling well and denies fever, chest pain, chills, or other complaints. He is currently taking ibuprofen. Laboratory results show potassium 3.2; potassium replacement protocol has been initiated. Procalcitonin is 4.37 and CRP is 168, both slightly elevated from yesterdays values. He had a normal bowel movement. Urine culture grew Citrobacter koseri, susceptible to all tested antibiotics. He is currently receiving Zosyn. Monitoring will continue. 03/17/2025 Patient was evaluated at the bedside. He is hemodynamically stable. No acute overnight events. There are no other associated symptoms like fever, chills, chest pain and shortness of breath. His CRP is gradually trending down from 168.60-133.40. In addition to that his WBC as gone down from 12.7 to 10.5. Clinical signs and symptoms have significantly improved. He is currently receiving Zosyn (Day 3). Awaiting Infectious Disease recommendations for discharge and further management. REVIEW OF SYSTEMS CONSTITUTIONAL: Denies fevers, chills, night sweats. No unintentional weight loss reported. NEUROLOGICAL: Denies headache, amaurosis fugax, motor weakness, sensory deficit, vertigo/spinning sensation, gait abnormalities, or tremors. ENT: No hearing loss, otalgia, otorrhea, rhinitis, rhinorrhea, hoarseness, or sore throat. CARDIOVASCULAR: Denies any exertional angina, dyspnea on exertion, orthopnea, paroxysmal nocturnal dyspnea, palpitations, life-threatening arrhythmias, claudication. PULMONARY: Denies any shortness of breath, cough, phlegm/sputum, hemoptysis, pleuritic chest pain. SLEEP: Denies morning headaches, daytime somnolence or napping. Denies difficulty falling asleep, staying asleep, waking from sleep. Denies knowledge of snoring. GASTROINTESTINAL: Denies any type of dysphagia to either liquids or solids. Denies nausea, vomiting, pyrosis, early satiety, abdominal pain, diarrhea, constipation, or changes in stool consistency or caliber. Denies coffee-ground emesis, hematemesis, hematochezia, or melanotic stools. GENITOURINARY: Frequency Denies urgency, nocturia, hematuria or incontinence (Storage/Irritative symptoms.) Low urinary stream, straining to void, urinary intermittency or hesitancy, splitting of the voiding stream, terminal dribbling. ENDOCRINOLOGIC: Denies polyuria, polydipsia, polyphagia or heat/cold intolerances. HEMATOLOGIC: Denies thrombophilia/previous clots, or coagulopathy/bleeding disorders. ONCOLOGIC: Denies personal history of malignancy. DERMATOLOGIC: Denies rashes or pruritus. PSYCHIATRIC: Denies any suicidal or homicidal ideation. Denies hallucinations. PHYSICAL EXAM GENERAL APPEARANCE: The patient is awake, alert, and oriented, in no acute cardiopulmonary distress. NEUROLOGICAL: Motor is 5/5 in bilateral upper and lower extremities proximal to distal. No sensory deficits. HEENT: Face is symmetric. Pupils are equal and reactive. Extraocular movements are intact. NECK: Supple. No JVD. No thyromegaly. No submental, submandibular, pre- /postauricular, occipital or supraclavicular lymphadenopathy. CHEST: Normal chest expansion. No Telemetry. LUNGS: Absence of any rales, rhonchi or any wheezing. CARDIOVASCULAR: Regular. S1 and S2 normal. No appreciable rubs, murmurs or gallops. ABDOMEN: Soft and nondistended. There is no rebound, voluntary guarding, or rigidity. : Deferred. No Martinez. EXTREMITIES: Non-edematous and not cyanotic. No clubbing. Good capillary refill. SKIN: No skin breakdown. Vital Signs (last 8hr) Date Time Temp Pulse Resp B/P (MAP) Pulse Ox O2 Delivery O2 Flow Rate FiO2 03/17/25 12:00 98.2 58 15 128/64 96 Room Air 03/17/25 08:00 98.2 68 16 137/83 94 Room Air LABS: Laboratory: Test 03/17/25 03:47 03/16/25 09:36 03/16/25 04:20 Range/Units White Blood Count 10.5 4.8-10.8 K/uL Red Blood Count 3.82 L 4.50-6.20 MIL/uL Hemoglobin 11.0 L 14.0-18.0 g/dL Hematocrit 33.8 L 42-54 % Mean Corpuscular Volume 88.5 79-99 fL Mean Corpuscular Hemoglobin 28.8 27.0-33.0 pg Mean Corpuscular Hemoglobin Concent 32.5 32.0-36.0 g/dL Red Cell Distribution Width 15.2 11.0-15.5 % Platelet Count 155 130-400 K/uL Mean Platelet Volume 9.7 7.5-10.5 fL Immature Granulocyte % (Auto) 0.6 0-1 % Neutrophils (%) (Auto) 70.8 40.0-77.0 % Lymphocytes (%) (Auto) 21.0 21.0-51.0 % Monocytes (%) (Auto) 5.5 3.0-13.0 % Eosinophils (%) (Auto) 1.9 0.0-8.0 % Basophils (%) (Auto) 0.2 0.0-5.0 % Neutrophils # (Auto) 7.4 1.8-7.7 K/uL Lymphocytes # (Auto) 2.2 1.0-4.8 K/uL Monocytes # (Auto) 0.6 0.1-1.0 K/uL Eosinophils # (Auto) 0.20 0.00-0.70 K/uL Basophils # (Auto) 0.02 0.00-0.20 K/uL Absolute Immature Granulocyte (auto 0.06 0-1 K/uL Nucleated Red Blood Cells 0.0 0.0-0.19 % Sodium Level 139 136-145 mmol/L Potassium Level 3.5 3.5-5.1 mmol/L Chloride Level 107 101-111 mmol/L Carbon Dioxide Level 27 21-32 mmol/L Blood Urea Nitrogen 10 7-18 mg/dL Creatinine 1.2 0.5-1.3 mg/dL Glomerular Filtration Rate Calc 65 >90 mL/min Random Glucose 96 70-105 mg/dL Total Calcium 8.6 8.5-10.1 mg/dL C-Reactive Protein, Quantitative 133.40 H 0.5-3.0 mg/L Procalcitonin 3.03 H 0.05-0.5 ng/mL Lactic Acid Level 1.1 0.8-2.5 mmol/L Uric Acid 2.5 L 2.6-7.2 mg/dL Magnesium Level 1.60 L 1.80-2.40 mg/dL Current Medications Medications (Trade) Dose Ordered Sig/Lory Route PRN Reason Start Time Stop Time Status Last Admin Dose Admin Acetaminophen (TYLenol 325MG TAB) 650 mg Q6H PRN PO MILD PAIN (1-3)/TEMP > 101.5 03/14/25 23:00 04/13/25 22:59 03/15/25 13:37 650 MG Atorvastatin Calcium (LIPItor 40MG) 40 mg HS PO 03/15/25 21:00 04/14/25 20:59 03/16/25 19:42 40 MG Famotidine (Pepcid 20mg Vial) 20 mg BID IV 03/15/25 21:00 04/14/25 20:59 03/17/25 09:34 20 MG Heparin Sodium (Porcine) (HEParin 5,000 UNIT VIAL) 5,000 unit BID SQ 03/15/25 09:00 04/14/25 08:59 03/17/25 09:41 5,000 UNIT Home Med (Home Medication) (Cholecalciferol (Vitamin D3) 50 MCG) HS PO 03/15/25 21:00 04/14/25 20:59 Hydralazine HCl (APRESOLine 20MG INJ) 10 mg Q6H PRN IV For:SBP above 160;DBP above 90 03/14/25 23:00 04/13/25 22:59 Hydromorphone HCl (DiLAUDid 0.5MG INJ) 0.25 mg Q4H PRN IVP SEVERE PAIN (7-10) 03/14/25 23:00 03/19/25 22:59 Lactated Ringer's 1,000 ml @ 75 mls/hr [id number] IV 03/14/25 23:00 04/13/25 22:59 03/17/25 06:06 75 MLS/HR Lactulose (Constulose 20gm/ 30ml Udcup) 20 gm BID PRN PO CONSTIPATION 03/14/25 23:00 04/13/25 22:59 Latanoprost (Xalatan) 1 DROP HS OP 03/16/25 21:00 04/14/25 20:59 03/16/25 19:42 1 DROP Latanoprost (Xalatan) 1 drop HS OP 03/15/25 21:00 03/16/25 07:08 DC 03/15/25 20:14 1 DROP Losartan Potassium (CozAAR 100MG TAB) 100 mg HS PO 03/15/25 21:00 04/14/25 20:59 03/16/25 19:41 100 MG Magnesium Sulfate 50 ml @ 0 mls/hr PROTOCOL PRN IV mgprotocol 03/15/25 08:00 04/14/25 07:59 03/16/25 04:58 25 MLS/HR Pantoprazole Sodium (PROTonix 40MG TAB) 40 mg DAILY PO 03/15/25 09:00 04/14/25 08:59 03/17/25 09:34 40 MG Piperacillin Sod/ Tazobactam Sod (Zosyn 3.375gm+NS 50ml) 3.375 gm Q8H IV 03/15/25 06:00 03/25/25 05:59 03/17/25 14:38 3.375 GM Potassium Chloride 100 ml @ 50 mls/hr AD PRN IV POTASSIUM PROTOCOL 03/15/25 08:00 04/14/25 07:59 Potassium Chloride 100 ml @ 100 mls/hr AD PRN IV POTASSIUM PROTOCOL 03/15/25 08:00 03/16/25 13:01 DC Potassium Chloride (K-Dur/Klor-Con 20meq) 20 meq AD PRN PO POTASSIUM PROTOCOL 03/15/25 08:00 04/14/25 07:59 03/17/25 14:38 20 MEQ Potassium Chloride (KCl 10% Elixir 20meq/15ml) 20 meq AD PRN PO POTASSIUM PROTOCOL 03/15/25 08:00 04/14/25 07:59 03/16/25 15:27 20 MEQ Tamsulosin HCl (FloMAX) 0.4 mg DAILY PO 03/15/25 09:00 04/14/25 08:59 03/17/25 09:34 0.4 MG DIAGNOSTICS / RADIOLOGY: [ ] ASSESSMENT: Sepsis, POA urinary tract infection Hyperlactatemia, POA, resolved Elevated leukocytes Acute kidney injury, POA, on 01/08/2025 creatinine 1.1 Hypertension Hyperlipidemia Glaucoma Gout PLAN: Sepsis, POA secondary to urinary tract infection * His CRP is gradually trending down from 168.60-133.40. 03/17/25 * His urinalysis showed leucocyte esterase is 250 * Urine culture grew Citrobacter koseri (sensitive to Zosyn) and blood culture showed gram negative rods * Continue Zosyn (day 3). Awaiting the infectious disease recommendations for discharge planning and further recommendations. Hyperlactatemia, POA, resolved His lactate level is 3>1.3>1.3>1.1. 03/16/25 Elevated leukocytes, Resolved * Increased leukocytes is secondary to urine tract infection * WBC has gone down from 12.7 to 10.5. 03/17/25 * WBC increased from 9.9 to 12.7. 03/15/21 Acute kidney injury, POA, on 01/08/2025 creatinine 1.1 Today his creatine -1.2 and BUN increased from 9 to 10. Will repeat his labs tomorrow. Hypertension Today his blood pressure is 132/57 Continue Losartan Hyperlipidemia Continue Atorvastatin. Glaucoma He has no symptoms today. Continue latanoprost eye drops. Gout He has no symptoms today. uric acid-2.5 Continue allopurinol DVT prophylaxis with heparin. He is on consistent carb diet. GI prophylaxis with famotidine. ATTESTATION BY PHYSICIAN I have seen and examined the patient. I reviewed the documentation, medical decision making, and treatment plan as noted by the resident provider above. I agree with the findings and plan of care. Lonnie Christie MD CECY EDGE MD Mar 17, 2025 16:10
[2025-03-18] VITALS: BP 119/57; PULSE 58; RESP 20; TEMP 98.8
[2025-03-18 03:43] LABS: NUCLEATED RED BLOOD CELLS 0.0 % (0.0-0.19); PLATELET COUNT (AUTO) 158.0 K/uL (130-400); RED BLOOD CELL COUNT(AUTO) 3.88 MIL/uL (4.50-6.20); RED CELL DISTRIBUTION WIDTH 15.1 % (11.0-15.5); WHITE BLOOD COUNT (AUTO) 8.3 K/uL (4.8-10.8)
[2025-03-18 03:56] LABS: CREATININE 1.1 mg/dL (0.5-1.3); GLOMERULAR FILTR. RATE CALC 72.0 mL/min (>90); GLUCOSE,RANDOM 87.0 mg/dL (70-105); SODIUM SERUM 141.0 mmol/L (136-145); UREA NITROGEN, BLOOD 9.0 mg/dL (7-18)
[2025-03-18 04:00] VITALS: BP 155/86; PULSE 65; RESP 20; TEMP 98.7
[2025-03-18 08:00] VITALS: BP 139/73; PULSE 71; RESP 18; TEMP 98.1; O2SAT 94
--- NOTE | 2025-03-18 08:10 | PN ---
INFECTIOUS DISEASE FOLLOWUP NOTE DATE OF SERVICE: 03/17/2025 SUBJECTIVE: The patient is seen and examined at bedside. No fever. No chills. No nausea. No vomiting. No abdominal pain. No bleeding tendency. No rashes. No joint swelling. No depression or suicidal ideation. No dysuria or hematuria. The patient tolerated antibiotics. PHYSICAL EXAMINATION: VITAL SIGNS: Temperature 97.8. EYES: No icterus. Blindness bilaterally. HENT: No oral thrush seen. Moist oral mucosa. NECK: Supple. No JVD or thyromegaly. LUNGS: Good air entry. No rales, no rhonchi. CARDIOVASCULAR: S1 and S2, regular. No murmur heard. ABDOMEN: Obese, soft, nontender. Bowel sounds is present. ____ organomegaly. CENTRAL NERVOUS SYSTEM: Awake, alert, oriented x3. No focal deficits. SKIN: No rashes. LYMPHATIC: No peripheral lymphadenopathy. BACK: No deformity. No pressure ulcer. MUSCULOSKELETAL: No joint swelling, erythema, or tenderness. LABORATORY DATA: Repeat blood pressure. ASSESSMENT: A 69-year-old male with multiple problems, which included, * Gram-negative bacteremia and sepsis. * Urinary tract infection. * Obesity. * Hypertension. PLAN: * * Continue antibiotic. * * Continue pain management. * * Continue antihypertensives. * * Continue DVT prophylaxis. * * Followup culture. * * Monitor electrolytes ____. TID: [id number] RECEIPT: [id number]
[2025-03-18 12:00] VITALS: BP 148/76; PULSE 65; RESP 18; TEMP 98.4
[2025-03-18 16:00] VITALS: BP 135/69; PULSE 79; RESP 18; TEMP 98.6
--- NOTE | 2025-03-18 17:10 | NUR ---
PT sitting in bed w/ eyes open 0 s/s of distress noted, A&Ox4, able to make needs known. Discharge instructions given to PT and verbally and written. PT and verbally acknowledged understanding. IV removed intact w/o complications. PT escorted to POV via WC by TAX EXAMINER w/o complications.
--- NOTE | 2025-03-18 17:48 | DS ---
Discharge Summary Hospital Course Summary: Patient information: Name: Thuy Hooevr Date of : 1955 Admission date: 03/14/2025 Attending physician: Rinku Granado MD Admitting diagnosis: Sepsis, POA Hyperlactatemia, POA Acute kidney injury, POA, on 01/08/2025 creatinine 1.1, today it is 1.4 Hypertension Hyperlipidemia Course in hospital: He is a 69-year-old male with a past medical history of hypertension, hyperlipidemia, gout, glaucoma, renal cell carcinoma status post nephrectomy, had surgical history of left knee surgery, hernia repair, UroLift came to the ER on with the chief complaint of fever and chills. Three weeks back he had a left knee surgery then he developed urinary retention which he had a Martinez is placed which was changed twice. Third catheter was removed yesterday at the urology office as he was able to pee properly on 03/14/2025 then at night he had fever and chills. He has to pee for every 10 to 15 min. He came to the ER there his lab work showed that WBC is 9.9, lactate is 3. His vitals showed that Temperature is 103.3, pulse is 141, RR is 32, BP is 226/114. Urinalysis showed leukocyte esterase is 250 and WBC is 26 to 50. He was diagnosed with Urinary tract infection and sepsis. He is started on Zosyn. Blood and urine cultures are sent. He was admitted to the hospital for further management. He also had tenderness in the lower abdomen. His chest X-ray is normal. Urine and blood cultures showed Citrobacter koseri which is sensitive to Zosyn, ceftazidime, levofloxacin. ID was consulted. Gradually his labs improved and they are in the normal range. On 03/18/2025, he has no symptoms, his vitals are in the normal range and his labs re improving. ID gave a script for cefpodoxime 200mg BID for 10 days. He is medically stable and ready for discharge. So we discharged him. Slimer(s): CONSULTATION REPORT Name: THUY HOOVER Acct: [id number] MR: [id number] : 1955 Admit Date: 03/14/25 MICHEL FUNEZ MD [facility] [address] [place] [address] INFECTIOUS DISEASE CONSULTATION DATE OF SERVICE: 03/16/2025 REQUESTING PHYSICIAN: Dr. Christie. REASON FOR CONSULTATION: Gram-negative sepsis and UTI. HISTORY OF PRESENT ILLNESS: A 69-year-old male with hypertension, dyslipidemia, obesity, right renal cell carcinoma, presented to the hospital with fever and dysuria. T-max was 103.3. Urine culture grew Citrobacter species. Blood culture is growing Gram-negative francseca. The patient is started on Zosyn. Procalcitonin is elevated. Denies cough or shortness of breath. No palpitations or orthopnea. PAST MEDICAL HISTORY: 1. Hypertension. 2. Dyslipidemia. 3. Obesity. 4. Right renal cell carcinoma. PAST SURGICAL HISTORY: 1. 2. Left total knee arthroplasty. 3. Left knee revision arthroplasty. ALLERGIES: No known drug allergies. CURRENT MEDICATIONS: SOCIAL HISTORY: Denies alcohol, tobacco or illicit drug use. FAMILY HISTORY: Noncontributory. REVIEW OF SYSTEMS: Greater than 10 systems were reviewed, negative except as documented above. PHYSICAL EXAMINATION: GENERAL: Elderly male, awake. VITAL SIGNS: Temperature 98.3, pulse 79, blood pressure 144/69. EYES: No icterus. Pupils equal and reactive. HENT: No oral thrush seen. Moist oral mucosa. NECK: Supple. No JVD or thyromegaly. LUNGS: Good air entry. No rales. No rhonchi. CARDIOVASCULAR: S1 and S2 regular. No murmur heard. ABDOMEN: Obese, soft, nontender. Bowel sounds are present. CENTRAL NERVOUS SYSTEM: Awake, alert, oriented x 3. No focal deficits. SKIN: No rashes. LYMPHATIC: No peripheral lymphadenopathy. BACK: No deformity or pressure ulcer. MUSCULOSKELETAL: No joint swelling, erythema or tenderness. LABORATORY DATA: Sodium 138, potassium 3.2, BUN 10, creatinine 1.2. WBC 12.7, hemoglobin 11.6, platelets . Urine culture grew Citrobacter species. Blood culture is growing Gram-negative francesca. ASSESSMENT: A 69-year-old male presented with fever urinary symptoms CURRENT PROBLEMS: Include: 1. Gram negative sepsis 2. Urinary tract infection. 3. Hypokalemia. 4. Obesity. 5. Hypertension. PLAN: 1. Continue zosyn 2. Continue antihypertensive 3. Continue pain management. 4. The patient will be followed up closely. Thank you for allowing me to participate in the care of this patient. TID: [id number] RECEIPT: [id number] Electronically Signed by: MICHEL FUNEZ MD03/17/251899 Electronically Co-Signed by: Procedure(s): [facility] [address] [place] [address] IMAGING REPORT Signed PATIENT: THUY HOOVER MR#: [id number] : 1955 SEX: M AGE: 69 LOCATION: [facility] ORDER 01 STATUS: REG ER REPORT#: [id number] SERVICE 58 REASON: sepsis ORDERING PHYSICIAN: DIANE RUBIN MD PROCEDURE: CXR1VW - CHEST 1VW EXAM: CR Chest, 1 View. CLINICAL HISTORY: sepsis COMPARISON: None provided. FINDINGS: LUNGS: The lungs show no infiltrate or other acute finding. PLEURAL SPACES: No evidence of pleural effusion or pneumothorax. MEDIASTINUM: The cardiomediastinal silhouette is within normal limits. BONES: No acute osseous abnormality. IMPRESSION: No acute cardiopulmonary pathology is evident. /[place] DICTATED BY: QUINN BERNARDO MD DATE: 03/14/252234 ELECTRONICALLY SIGNED BY: QUINN BERNARDO MD DATE: 03/14/252234 Assessment/Plan: DISCHARGE DIAGNOSIS: Sepsis, POA urinary tract infection Hyperlactatemia, POA, resolved Elevated leukocytes Acute kidney injury, POA, resolved Hypertension Hyperlipidemia Glaucoma Gout ASSESSMENT/PLAN: Sepsis, POA secondary to urinary tract infection * His CRP is gradually trending down from 168.60-133.40. 03/17/25 * His urinalysis showed leucocyte esterase is 250 * Urine culture grew Citrobacter koseri (sensitive to Zosyn) and blood culture showed gram negative rods * He is taking Zosyn. * ID is consulted and they gave a script for Cefpodoxime 200mg PO BID for 10 days. * Continue Cefpodoxime. Hyperlactatemia, POA, resolved * His lactate level is 3>1.3>1.3>1.1. 03/16/25 Elevated leukocytes, Resolved * Increased leukocytes is secondary to urine tract infection * Today his WBC is 8.3 Acute kidney injury, POA, resolved * Today his creatine is 1.1 and BUN is 9. Hypertension * Today his blood pressure is 135/69 * Continue Losartan Hyperlipidemia * Continue Atorvastatin. Glaucoma * He has no symptoms today. * Continue latanoprost eye drops. Gout * He has no symptoms today. * uric acid-2.5 * Continue allopurinol Discharge Instructions: Discharge date: 03/18/2025 Discharge instructions: 1) Follow up with primary care physician within 2 to 3 days after discharge. 2) Continue all medications as prescribed. Do not discontinue or change doses without consulting your PCP. 3) Gradually resume normal activities as tolerated. 4) Continue a balanced diet. 5) Seek immediate medical attention if you experience fever, or burning sensation while voiding or frequent voiding or abdominal pain Discharge to: Home Condition on discharge: Stable Home Medications: Reported Medications Latanoprost (Latanoprost) 0.005 % Drops, 1 DROP OP HS, ML 0 Refills 03/15/25 Losartan Potassium (Losartan Potassium) 100 Mg Tablet, 100 MG PO HS, TAB 01/01/25 Atorvastatin Calcium (Atorvastatin Calcium) 20 Mg Tablet, 20 MG PO HS, TAB 01/01/25 Tamsulosin HCl (Flomax) 0.4 Mg Cap.er.24h, 0.4 MG PO HS, CAPSULE. 01/01/25 Vit B Cmplx 3/FA/Vit C/Biotin (Yolanda-Herminio Rx Tablet) 1 Each Tablet, 1 EACH PO HS, TAB 07/15/16 Discontinued Reported Medications Cholecalciferol (Vitamin D3) (Vitamin D3) 50 Mcg (2000 Unit) Capsule, 50 MCG PO HS, CAP 01/01/25 Allopurinol (Allopurinol) 100 Mg Tablet, 200 MG PO HS, TAB 07/15/16 Discontinued Scripts Oxycodone HCl/Acetaminophen (Percocet 5-325 mg Tablet) 5 Mg-325 Mg Tablet, 1-2 TAB PO Q8H PRN for Acute post-op pain (G89.18) for 7 Days, #42 TAB 0 Refills Prov:VINH RICHARDSON MD 01/04/25 Aspirin (ASPIRIN 81 MG ECTAB) 81 Mg Ectab, 81 MG PO BID for dvt prophylaxis for 30 Days, #60 TAB.EC Prov:VINH RICHARDSON MD 01/04/25 Continued Medications: Atorvastatin Calcium (Atorvastatin Calcium) 20 Mg Tablet 20 MG PO HS, TAB Latanoprost (Latanoprost) 0.005 % Drops 1 DROP OP HS, ML 0 Refills Losartan Potassium (Losartan Potassium) 100 Mg Tablet 100 MG PO HS, TAB Tamsulosin HCl (Flomax) 0.4 Mg Cap.er.24h 0.4 MG PO HS, CAPSULE.DR Rudi Skaggs Cmplx 3/FA/Vit C/Biotin (Yolanda-Herminio Rx Tablet) 1 Each Tablet 1 EACH PO HS, TAB Discontinued Medications: Allopurinol (Allopurinol) 100 Mg Tablet 200 MG PO HS, TAB Cholecalciferol (Vitamin D3) (Vitamin D3) 50 Mcg (2000 Unit) Capsule 50 MCG PO HS, CAP Time spent arranging discharge: 1-30 minutes ATTESTATION BY PHYSICIAN I have seen and examined the patient. I reviewed the documentation, medical decision making, and treatment plan as noted by the resident provider above. I agree with the findings and plan of care. Rinku Mercedes MD, AKSHAY MD Mar 18, 2025 17:48
--- NOTE | 2025-03-18 22:57 | PN ---
INFECTIOUS DISEASE PROGRESS NOTE Date of Service: Mar 18, 2025 SUBJECTIVE: [ ] PHYSICAL EXAM EYES: Anicteric. Pupils equal and reactive. HENT: No oral thrush seen, moist Oral mucosa NECK: Supple, no JVD or thyromegaly. LUNGS: Good air entry. No rales, no rhonchi. CARDIOVASCULAR: S1, S2 regular. No murmur heard. ABDOMEN: Soft, non tender, bowel sounds present, no organomegaly CENTRAL NERVOUS SYSTEM: Awake, alert, oriented x 3. No focal deficits. SKIN: No rashes, no swelling. LYMPHATICS: No peripheral lymphadenopathy MUSCULOSKELETAL: No joint swelling, erythema or tenderness. EXTREMITIES: No cyanosis or clubbing BACK: No deformity, no pressure ulcer. GENITOURINARY: No dysuria or hematuria Vital Sign (Last 12 Hours) 03/18/25 03/18/25 12:00 16:00 Temp 98.4 98.6 Pulse 65 79 Resp 18 18 B/P (MAP) 148/76 135/69 Pulse Ox 96 96 O2 Delivery Room Air Room Air Intake & Output (last 24hrs) 03/17/25 03/17/25 03/18/25 15:00 23:00 07:00 Intake Total 50.0 ml 500 ml 650.0 ml Output Total 1100 ml 650 ml Balance 50.0 ml -600 ml 0 ml LABS: Laboratory: Test 03/18/25 03:21 03/17/25 03:47 Range/Units White Blood Count 8.3 4.8-10.8 K/uL Red Blood Count 3.88 L 4.50-6.20 MIL/uL Hemoglobin 11.2 L 14.0-18.0 g/dL Hematocrit 33.9 L 42-54 % Mean Corpuscular Volume 87.4 79-99 fL Mean Corpuscular Hemoglobin 28.9 27.0-33.0 pg Mean Corpuscular Hemoglobin Concent 33.0 32.0-36.0 g/dL Red Cell Distribution Width 15.1 11.0-15.5 % Platelet Count 158 130-400 K/uL Mean Platelet Volume 10.0 7.5-10.5 fL Nucleated Red Blood Cells 0.0 0.0-0.19 % Sodium Level 141 136-145 mmol/L Potassium Level 3.4 L 3.5-5.1 mmol/L Chloride Level 106 101-111 mmol/L Carbon Dioxide Level 27 21-32 mmol/L Blood Urea Nitrogen 9 7-18 mg/dL Creatinine 1.1 0.5-1.3 mg/dL Glomerular Filtration Rate Calc 72 >90 mL/min Random Glucose 87 70-105 mg/dL Total Calcium 8.7 8.5-10.1 mg/dL Immature Granulocyte % (Auto) 0.6 0-1 % Neutrophils (%) (Auto) 70.8 40.0-77.0 % Lymphocytes (%) (Auto) 21.0 21.0-51.0 % Monocytes (%) (Auto) 5.5 3.0-13.0 % Eosinophils (%) (Auto) 1.9 0.0-8.0 % Basophils (%) (Auto) 0.2 0.0-5.0 % Neutrophils # (Auto) 7.4 1.8-7.7 K/uL Lymphocytes # (Auto) 2.2 1.0-4.8 K/uL Monocytes # (Auto) 0.6 0.1-1.0 K/uL Eosinophils # (Auto) 0.20 0.00-0.70 K/uL Basophils # (Auto) 0.02 0.00-0.20 K/uL Absolute Immature Granulocyte (auto 0.06 0-1 K/uL C-Reactive Protein, Quantitative 133.40 H 0.5-3.0 mg/L Procalcitonin 3.03 H 0.05-0.5 ng/mL DIAGNOSTICS / RADIOLOGY: PATIENT: THUY HOOVER ACCT: [id number] LOC: [facility] U: [id number] AGE/SX: 69/M ROOM: [facility] RE03/14/[address]: RAS CHAPARRO MD : 1955 BED: 1 DIS: STATUS: ADM IN TLOC: SPEC: [id number] LAM: 03/15/25 STATUS: COMP REQ: [id number] RECD: 03/15/[address] [facility] [address]: DIANE RUBIN MD SOURCE: BLOOD ENTR: 03/15/[address] [facility] [address]: MAHESH LARSON MD [facility]: BLOOD ORDERED: AERO ID & SENS Procedure Result [place] Date-Time AEROBIC ID & SENSITIVITIES Final 03/17/25-0549 [facility] DESCRIPTION: DAY 1: GRAM NEGATIVE RODS IDENTIFICATION AND SENSITIVITY TO FOLLOW AEROBIC AND ANAEROBIC BOTTLES [facility] RX --------- ---- AZTREONAM <=4 S CEFTAZIDIME <=1 S CEFTAZIDIME/AVIBACTAM <=8 S GENTAMICIN <=2 S LEVOFLOXACIN <=0.5 S MEROPENEM <=1 S PIPERACILLIN/TAZOBACTAM <=8 S TRIMETHOPRIM/SUFLAMETHOXAZOLE <=2/38 S ASSESSMENT: PLAN: From Infectious Disease standpoint patient can be discharged on Vantin for 10 days. Prescription was written and given to nurse. This case was reviewed and discussed with my supervising physician Dr. Dickinson and the above assessment and plan was formulated and agreed upon. ATTESTATION BY PHYSICIAN I have seen and examined the patient. I reviewed the documentation, medical decision making, and treatment plan as noted by the mid-level provider above. I agree with the findings and plan of care. ARMINMICHEL BELTRAN MD, MIRTA L [facility] Mar 18, 2025 22:57
== END 2025-03-18 17:10 | disposition home or self-care (01) | DRG 872 ==
LOC: EDH 20:45 → EDHIP 22:35 → 4BH 03-15 02:13
PROVIDERS: ADMIT Internal Medicine; ATTEND Internal Medicine
DX: A41.50 Gram-negative sepsis, unspecified (principal); N39.0 Urinary tract infection, site not specified; N17.9 Acute kidney failure, unspecified; R65.20 Severe sepsis without septic shock; I10 Essential (primary) hypertension; E78.5 Hyperlipidemia, unspecified; Z20.822 Contact with and (suspected) exposure to COVID-19; Z96.652 Presence of left artificial knee joint; H40.9 Unspecified glaucoma; M10.9 Gout, unspecified; E66.9 Obesity, unspecified; E78.00 Pure hypercholesterolemia, unspecified; E87.6 Hypokalemia; Z79.82 Long term (current) use of aspirin; Z79.899 Other long term (current) drug therapy; Z85.528 Personal history of other malignant neoplasm of kidney; Z80.51 Family history of malignant neoplasm of kidney; Z82.49 Family history of ischemic heart disease and other diseases of the circulatory system; Z90.5 Acquired absence of kidney; Z68.30 Body mass index [BMI] 30.0-30.9, adult
CPT/HCPCS: 36415; 71045; 80048; 81001; 82550; 82570; 83036; 83605; 83735; 83935; 84100; 84145; 84300; 84443; 84484; 84550; 85025; 85027; 86140; 87040; 87086; 87186; 87426; 87804; 93005; 99285; G0378; J0360; J1644; J2270; J2405; J2543; J3373; J3475; J3490; J7030; J7120

== ENCOUNTER → 2025-03-21 | Outpatient (CLI) | payer OTHER ==
[~2025-03-21] MED LIST changes: -AEC81 PO; -ALLO100T PO; -CHOL2000 PO; +IOHEXOL-350 75 ML VIAL IV ONE; +LATA2.5D7 OP; -OXYC-38 PO
--- NOTE | 2025-03-21 14:20 | HMCIMG ---
EXAM: CT Abdomen and Pelvis with and without IV contrast CLINICAL HISTORY: RETENTION OF URINE. TECHNIQUE: Axial computed tomography images of the abdomen and pelvis with and without intravenous contrast. CONTRAST: with and without intravenous contrast. COMPARISON: None provided. FINDINGS: LUNG BASES: No pleural effusions are seen. LIVER: Dilated changes of portal hypertension are present. Portal vein measures 1.6 cm. GALLBLADDER AND BILE DUCTS: Calculi are seen in the neck of the gallbladder of size 7 x 8 mm. No biliary ductal dilatation is evident. PANCREAS: Unremarkable. SPLEEN: Unremarkable. ADRENAL GLANDS: Unremarkable. KIDNEYS, URETERS, AND BLADDER: The right kidney is not visualized, post-nephrectomy status. Multiple metallic clips are seen in the right renal fossa. Left kidney is normal. No hydronephrosis or hydroureter. Thick-walled urinary bladder with adjacent stranding, consistent with cystitis. STOMACH AND BOWEL: No bowel obstruction or formation. APPENDIX: No evidence of acute appendicitis on CT examination. LYMPH NODES: No lymphadenopathy is evident. REPRODUCTIVE: The prostate measures 30 cc, appears bulky. BONES: Spine degenerative changes. Grade 1 anterolisthesis seen along L5 over S1. No aggressive appearing osseous lesion. No acute osseous pathology evident. IMPRESSION: 1. Portal hypertension with a dilated portal vein measuring 1.6 cm. 2. 7 x 8 mm gallstone in the gallbladder neck. 3. Status post right nephrectomy. Normal left kidney. No left hydronephrosis. 4. Thickening of the urinary bladder with adjacent stranding, consistent with cystitis. 5. Enlarged prostate /Sleepy Eye
== END | disposition home or self-care (01) ==
LOC: RAH 07:57
PROVIDERS: ATTEND Urology
DX: K80.20 Calculus of gallbladder without cholecystitis without obstruction (principal); N40.1 Benign prostatic hyperplasia with lower urinary tract symptoms; K76.6 Portal hypertension; M47.817 Spondylosis without myelopathy or radiculopathy, lumbosacral region; M43.17 Spondylolisthesis, lumbosacral region; R33.8 Other retention of urine; Z90.5 Acquired absence of kidney
CPT/HCPCS: 74178; Q9967